=== PATIENT | male | born 1950 | race Caucasian/White ===

== ENCOUNTER → 2016-11-17 | Outpatient (CLI) | payer MEDICARE, OTHER ==
[2016-11-17 12:42] LABS: CHLORIDE,CL 99 mmol/L (98-110); SODIUM,NA 131 mmol/L (136-146)
== END ==
LOC: MW.CHIM 11:36
PROVIDERS: ATTEND Internal Medicine
DX: I10 Essential (primary) hypertension (principal); E87.1 Hypo-osmolality and hyponatremia
CPT/HCPCS: 36415; 80053

== ENCOUNTER 2016-11-25 12:35 | Emergency (ER) | payer MEDICARE, OTHER ==
[2016-11-25 12:54] VITALS: BP 148/80
--- NOTE | 2016-11-25 12:58 | EDM.PDOC ---
ED HPI GENERAL MEDICAL PROBLEM - General Chief Complaint: Lower Extremity Injury/Pain Stated Complaint: RIGHT KNEE Time Seen by Provider: 11/25/16 12:56 Source of Information: Reports: Patient History Limitations: Reports: No Limitations - History of Present Illness INITIAL COMMENTS - FREE TEXT/NARRATIVE: History of present illness: [66-year-old male comes in complaining of right-sided knee pain. Patient indicates that he was removing things from a closet over his head when a BB gun fell landing and striking him on the right knee. Patient indicates that it feels painful and swollen. Patient is able to perform passive range of motion but indicates that it is very uncomfortable.] Review of systems: As per history of present illness and below otherwise all systems reviewed and negative. Past medical history: As per history of present illness and as reviewed below otherwise noncontributory. Surgical history: As per history of present illness and as reviewed below otherwise noncontributory. Social history: No reported history of drug or alcohol abuse. Family history: As per history of present illness and as reviewed below otherwise noncontributory. Physical exam: HEENT: Atraumatic, normocephalic, pupils reactive, negative for conjunctival pallor or scleral icterus, mucous membranes moist, throat clear, neck supple, nontender, trachea midline. Lungs: Clear to auscultation, breath sounds equal bilaterally, chest nontender. Heart: S1S2, regular, negative for clicks, rubs, or JVD. Abdomen: Soft, nondistended, nontender. Negative for masses or hepatosplenomegaly. Negative for costovertebral tenderness. Pelvis: Stable nontender. Genitourinary: Deferred. Rectal: Deferred. Extremities: Right knee noted to have mild amount of swelling on the anterior aspect of the patella but no ecchymosis or significant amount of edema at this time, negative for cords or calf pain. Neurovascular unremarkable. Neuro: Awake, alert, oriented. Cranial nerves II through XII unremarkable. Cerebellum unremarkable. Motor and sensory unremarkable throughout. Exam nonfocal. Diagnostics: [Knee x-ray] Therapeutics: [] Impression: [] Plan: [] Definitive disposition and diagnosis as appropriate pending reevaluation and review of above. Right Knee Pain Score (Numeric/FACES): 6 - Related Data Allergies Allergy/AdvReac Type Severity Reaction Status Date / Time No Known Allergies Allergy Verified 09/14/14 12:30 Home Meds: Home Meds Lisinopril [Lisinopril] 1 tab PO DAILY 11/25/16 [History] Sodium Chloride [Sodium Chloride] 1 tab PO DAILY 11/25/16 [History] Umeclidinium Brm/Vilanterol Tr [Anoro Ellipta 62.5-25 Mcg INH] 1 puff PO DAILY 11/25/16 [History] Past Medical History - Past Health History Medical/Surgical History: Denies Medical/Surgical History Social & Family History - Tobacco Use Smoking Status *Q: Current Every Day Smoker Years of Tobacco use: 20 Packs/Tins Daily: 1 Second Hand Smoke Exposure: Yes - Alcohol Use Days Per Week of Alcohol Use: 1 Number of Drinks Per Day: 6 Total Drinks Per Week: 6 - Recreational Drug Use Recreational Drug Use: No Review of Systems - Review of Systems Review Of Systems: See Below (See history of present illness`) Trauma Exam - Physical Exam Exam: See Below (See history of present illness) Course - Vital Signs Last Recorded V/S: Last Vital Signs Temp 36.3 C 11/25/16 12:44 Pulse 78 11/25/16 12:44 Resp 18 11/25/16 12:44 BP 148/80 H 11/25/16 12:44 Pulse Ox 94 L 11/25/16 12:44 Departure - Departure Time of Disposition: 14:04 Disposition: Home, Self-Care 01 Condition: good Clinical Impression: Knee contusion - Discharge Information Forms: ED Department Discharge Additional Instructions: The following information is given to patients seen in the emergency department who are being discharged to home. This information is to outline your options for follow-up care. We provide all patients seen in our emergency department with a follow-up referral. The need for follow-up, as well as the timing and circumstances, are variable depending upon the specifics of your emergency department visit. If you don't have a primary care physician on staff, we will provide you with a referral. We always advise you to contact your personal physician following an emergency department visit to inform them of the circumstance of the visit and for follow-up with them and/or the need for any referrals to a consulting specialist. The emergency department will also refer you to a specialist when appropriate. This referral assures that you have the opportunity for follow-up care with a specialist. All of these measure are taken in an effort to provide you with optimal care, which includes your follow-up. Under all circumstances we always encourage you to contact your private physician who remains a resource for coordinating your care. When calling for follow-up care, please make the office aware that this follow-up is from your recent emergency room visit. If for any reason you are refused follow-up, please contact the [facility] Emergency Department at and asked to speak to the emergency department charge nurse. There was no obvious signs of fracture on your x-ray which is consistent with a contusion or blow to the knee it is important that you followup as discussed You may alternate ice and heat for comfort Take tihs-glk-eviywhi pain medications such as ibuprofen 800 mg every 8 hours Followup with primary care provider in one to 2 days as discussed Turned ED as needed as discussed
--- NOTE | 2016-11-25 13:49 | CR ---
EXAMINATION: Right knee HISTORY: Pain COMPARISON: None TECHNIQUE: 3 views FINDINGS: There is no acute osseous abnormality, dislocation, or fracture identified. Bone mineraliz ation appears normal. There is a small suprapatellar joint effusion. IMPRESSION: Small joint effusion without an acute osseous abnormality identified.
== END 2016-11-25 14:23 | disposition home or self-care (01) ==
LOC: MW.ED 12:35
DX: S80.01XA Contusion of right knee, initial encounter (principal); F17.210 Nicotine dependence, cigarettes, uncomplicated; Z79.899 Other long term (current) drug therapy; W20.8XXA Other cause of strike by thrown, projected or falling object, initial encounter
CPT/HCPCS: 73562-26-RT; 73562-RT; 99282; 99283

== ENCOUNTER 2016-12-30 21:34 | Observation (INO) | payer MEDICARE, OTHER ==
--- NOTE | 2016-12-30 21:40 | EDM.PDOC ---
ED HPI GENERAL MEDICAL PROBLEM - General Stated Complaint: HEAT EXHAUSTION Time Seen by Provider: 12/30/16 21:37 - History of Present Illness INITIAL COMMENTS - FREE TEXT/NARRATIVE: HISTORY AND PHYSICAL: History of present illness: Patient is 66-year-old male presents via paramedics after having an episode when she was semi-responsive this occurred when he is at home with his family sitting outside doing nothing this lasted an unknown amount of time but estimated B summer 2009-15 minutes there was no seizure activity no associated chest pain shortness of breath nausea vomiting fever chills or other concern he denies recent trauma had a blood sugar that was greater than 100 prior to arrival he also had complete resolution of his symptoms when paramedics intercepted for transport here he remains asymptomatic at this time Review of systems: As per history of present illness and below otherwise all systems reviewed and negative. Past medical history: As per history of present illness and as reviewed below otherwise noncontributory. Surgical history: As per history of present illness and as reviewed below otherwise noncontributory. Social history: No reported history of drug or alcohol abuse. Family history: As per history of present illness and as reviewed below otherwise noncontributory. Physical exam: HEENT: Atraumatic, normocephalic, pupils reactive, negative for conjunctival pallor or scleral icterus, mucous membranes moist, throat clear, neck supple, nontender, trachea midline. Lungs: Clear to auscultation, breath sounds equal bilaterally, chest nontender. Heart: S1S2, regular, negative for clicks, rubs, or JVD. Abdomen: Soft, nondistended, nontender. Negative for masses or hepatosplenomegaly. Negative for costovertebral tenderness. Pelvis: Stable nontender. Genitourinary: Deferred. Rectal: Deferred. Extremities: Atraumatic, negative for cords or calf pain. Neurovascular unremarkable. Neuro: Awake, alert, oriented. Cranial nerves II through XII unremarkable. Cerebellum unremarkable. Motor and sensory unremarkable throughout. Exam nonfocal. Diagnostics: CBC CMP PT/INR troponin chest x-ray EKG CT brain Therapeutics: IV O2 monitor Impression: #1 altered mental status resolved rule out TIA Definitive disposition and diagnosis as appropriate pending reevaluation and review of above. - Related Data Allergies Allergy/AdvReac Type Severity Reaction Status Date / Time No Known Allergies Allergy Verified 12/30/16 21:39 Home Meds: Home Meds Lisinopril [Lisinopril] 1 tab PO DAILY 11/25/16 [History] Meloxicam 7.5 mg PO BID #30 tablet 11/25/16 [Rx] Sodium Chloride [Sodium Chloride] 1 tab PO DAILY 11/25/16 [History] Umeclidinium Brm/Vilanterol Tr [Anoro Ellipta 62.5-25 Mcg INH] 1 puff PO DAILY 11/25/16 [History] Past Medical History - Past Health History Medical/Surgical History: Denies Medical/Surgical History Social & Family History - Tobacco Use Smoking Status *Q: Current Every Day Smoker Years of Tobacco use: 20 Packs/Tins Daily: 1 Second Hand Smoke Exposure: Yes - Alcohol Use Days Per Week of Alcohol Use: 1 Number of Drinks Per Day: 6 Total Drinks Per Week: 6 - Recreational Drug Use Recreational Drug Use: No ED ROS GENERAL - Review of Systems Review Of Systems: ROS reveals no pertinent complaints other than HPI. ED EXAM, GENERAL - Physical Exam Exam: See Below (See dictation) Course - Vital Signs Last Recorded V/S: Last Vital Signs Temp 36.2 C 12/30/16 21:48 Pulse 70 12/30/16 21:48 Resp 14 12/30/16 21:48 BP 137/74 12/30/16 21:48 Pulse Ox 97 12/30/16 21:48 - Orders/Labs/Meds Orders: Active Orders 24 hr Category Date Time Status EKG Documentation Completion [RC] STAT Care 12/30/16 21:37 Active Chest 1V Frontal [CR] Stat Exams 12/30/16 21:37 Taken Head wo Cont [CT] Stat Exams 12/30/16 21:37 Taken Sodium Chloride 0.9% [Normal Saline] 1,000 ml Med 12/30/16 21:46 Active IV .Bolus Medication Orders Sodium Chloride (Normal Saline) 1,000 mls @ 999 mls/hr IV .Bolus ONE Stop: 12/30/16 22:46 Last Admin: 12/30/16 21:56 Dose: 999 mls/hr Labs: Laboratory Tests 12/30/16 12/30/16 12/30/16 Range/Units 21:54 21:54 21:54 WBC 11.24 H (4.0-11.0) K/uL RBC 4.54 (4.50-5.90) M/uL Hgb 14.5 (13.0-17.0) g/dL Hct 40.7 (38.0-50.0) % MCV 89.6 (80.0-98.0) fL MCH 31.9 (27.0-32.0) pg MCHC 35.6 (31.0-37.0) g/dL RDW Std Deviation 46.7 (28.0-62.0) fl RDW Coeff of Pamela 14 (11.0-15.0) % Plt Count 239 (150-400) K/uL MPV 9.70 (7.40-12.00) fL Neut % (Auto) 73.7 (48.0-80.0) % Lymph % (Auto) 13.5 L (16.0-40.0) % [place] % (Auto) 12.0 (0.0-15.0) % Eos % (Auto) 0.4 (0.0-7.0) % Baso % (Auto) 0.4 (0.0-1.5) % Neut # (Auto) 8.3 H (1.4-5.7) K/uL Lymph # (Auto) 1.5 (0.6-2.4) K/uL [place] # (Auto) 1.4 H (0.0-0.8) K/uL Eos # (Auto) 0.1 (0.0-0.7) K/uL Baso # (Auto) 0.1 (0.0-0.1) K/uL Nucleated RBC % 0.0 /100WBC Nucleated RBCs # 0 K/uL INR 0.98 (0.86-1.11) Sodium 130 L (136-146) mmol/L Potassium 4.0 (3.5-5.1) mmol/L Chloride 98 (98-110) mmol/L Carbon Dioxide 20 L (21-31) mmol/L BUN 13 (6.0-23.0) mg/dL Creatinine 1.1 (0.6-1.5) mg/dL Est Cr Clr Drug Dosing 63.57 mL/min Estimated GFR (MDRD) > 60.0 ml/min Glucose 96 (60-110) mg/dL Calcium 9.7 (8.8-10.8) mg/dL Total Bilirubin 0.6 (0.1-1.5) mg/dL AST 20 (5-40) IU/L ALT 9 (8-54) IU/L Alkaline Phosphatase 58 (40-150) CK-MB (CK-2) 1.0 (0-6.6) ng/ml Troponin I (0.0-0.29) NG/ML Total Protein 7.4 (6.0-8.0) g/dL Albumin 4.2 (3.4-4.8) g/dL Globulin 3.2 (2.0-3.5) g/dL Albumin/Globulin Ratio 1.3 (1.3-2.8) 12/30/16 Range/Units 21:54 WBC (4.0-11.0) K/uL RBC (4.50-5.90) M/uL Hgb (13.0-17.0) g/dL Hct (38.0-50.0) % MCV (80.0-98.0) fL MCH (27.0-32.0) pg MCHC (31.0-37.0) g/dL RDW Std Deviation (28.0-62.0) fl RDW Coeff of Pamela (11.0-15.0) % Plt Count (150-400) K/uL MPV (7.40-12.00) fL Neut % (Auto) (48.0-80.0) % Lymph % (Auto) (16.0-40.0) % [place] % (Auto) (0.0-15.0) % Eos % (Auto) (0.0-7.0) % Baso % (Auto) (0.0-1.5) % Neut # (Auto) (1.4-5.7) K/uL Lymph # (Auto) (0.6-2.4) K/uL [place] # (Auto) (0.0-0.8) K/uL Eos # (Auto) (0.0-0.7) K/uL Baso # (Auto) (0.0-0.1) K/uL Nucleated RBC % /100WBC Nucleated RBCs # K/uL INR (0.86-1.11) Sodium (136-146) mmol/L Potassium (3.5-5.1) mmol/L Chloride (98-110) mmol/L Carbon Dioxide (21-31) mmol/L BUN (6.0-23.0) mg/dL Creatinine (0.6-1.5) mg/dL Est Cr Clr Drug Dosing mL/min Estimated GFR (MDRD) ml/min Glucose (60-110) mg/dL Calcium (8.8-10.8) mg/dL Total Bilirubin (0.1-1.5) mg/dL AST (5-40) IU/L ALT (8-54) IU/L Alkaline Phosphatase (40-150) CK-MB (CK-2) (0-6.6) ng/ml Troponin I < 0.10 (0.0-0.29) NG/ML Total Protein (6.0-8.0) g/dL Albumin (3.4-4.8) g/dL Globulin (2.0-3.5) g/dL Albumin/Globulin Ratio (1.3-2.8) Meds: Medications Generic Name Dose Route Start Last Admin Trade Name Freq PRN Reason Stop Dose Admin Sodium Chloride 1,000 mls @ 999 mls/hr 12/30/16 21:46 12/30/16 21:56 Normal Saline IV 12/30/16 22:46 999 mls/hr .Bolus ONE Administration Departure - Departure Time of Disposition: 22:43 Disposition: Refer to Observation Condition: Good Clinical Impression: Altered mental status - Discharge Information - My Orders Last 24 Hours: My Active Orders 12/30/16 21:37 EKG Documentation Completion [RC] STAT Chest 1V Frontal [CR] Stat Head wo Cont [CT] Stat 12/30/16 21:46 Sodium Chloride 0.9% [Normal Saline] 1,000 ml IV .Bolus - Assessment/Plan Last 24 Hours: My Active Orders 12/30/16 21:37 EKG Documentation Completion [RC] STAT Chest 1V Frontal [CR] Stat Head wo Cont [CT] Stat 12/30/16 21:46 Sodium Chloride 0.9% [Normal Saline] 1,000 ml IV .Bolus
[2016-12-30] MEDS ORDERED: Sodium Chloride 0.9% 1,000 ML IV ONE (21:46)
[2016-12-30 22:31] LABS: CHLORIDE,CL 98 mmol/L (98-110); SODIUM,NA 130 mmol/L (136-146)
[2016-12-31] MEDS ORDERED: Sodium Chloride 0.9% 2.5 ML Syringe FLUSH PRN (00:29)
[2016-12-31] MEDS ORDERED: Sodium Chloride 0.9% 10 ML Syringe FLUSH PRN (00:29)
[2016-12-31 08:10] VITALS: BP 120/57
[2016-12-31 08:37] LABS: CHLORIDE,CL 103 mmol/L (98-110); SODIUM,NA 131 mmol/L (136-146)
--- NOTE | 2016-12-31 09:34 | PCM.HP ---
H&P History of Present Illness - General Date of Service: 12/31/16 Admit Problem/Dx: Admission Diagnosis/Problem Admission Diagnosis/Problem Altered mental status Source of Information: Patient History Limitations: Reports: No Limitations - History of Present Illness Initial Comments - Free Text/Narative: This 66 year old male with pmh hyponatremia and HTN presented to the ED last evening with complaints of disorientation. He reports having a normal morning at home and then went to his daughters place for the afternoon. He was outside for most of this time and not drinking any fluids. He had 1/4 of a beer maybe. He reports remembering everything from starting to not feel well, the drive to the hospital. He initially felt like he didn't know where he was and was asking to go home. His daughters noticed the disorientation and had EMS come to have him evaluated in the ED. He reports feeling flushed, very hot and sweating alot. He denies headache, fevers, or chest pain. No SOB or N/V. By the time he arrived to the ED he was feeling better. He was given 1 L bolus NS in the ED. In the ED VS stable. labwork WNL, Na 130, does have hx hyponatremia (near baseline). CXR negative. Head CT completed which revealed no evidence of acute infarction, hemorrhage or mass effect, it did show an area of small focus of encephalomalacia present in the right frontal lobe, mild diffuse cortical atrophy and diffuse confluent low attenuation white matter changes likely due to chronic microvascular disease. ED physician recommended admission for AMS. PCP, Dr. Do - Related Data Allergies/Adverse Reactions: Allergies Allergy/AdvReac Type Severity Reaction Status Date / Time No Known Allergies Allergy Verified 12/30/16 21:39 Home Medications: Home Meds Lisinopril 1 tab PO BID 11/25/16 [History] Meloxicam 7.5 mg PO BID #30 tablet 11/25/16 [Rx] Sodium Chloride 2 tab PO BID 11/25/16 [History] Umeclidinium Brm/Vilanterol Tr [Anoro Ellipta 62.5-25 Mcg INH] 1 puff PO DAILY 11/25/16 [History] amLODIPine [Norvasc] 2.5 mg PO DAILY 12/31/16 [History] Past Medical History - Past Health History Medical/Surgical History: Denies Medical/Surgical History Cardiovascular History: Reports: High Cholesterol, Hypertension. Denies: Heart Failure, ID Respiratory History: Reports: COPD Gastrointestinal History: Reports: Other (See Below) Other Gastrointestinal History: abdominal surgery on ulcer per pt Genitourinary History: Reports: None. Denies: Chronic Renal Insuffiency Musculoskeletal History: Reports: None Neurological History: Reports: None. Denies: CVA, TIA Psychiatric History: Reports: None Endocrine/Metabolic History: Reports: None. Denies: Diabetes, Type II Hematologic History: Reports: Other (See Below) Other Hematologic History: hyponatremia Immunologic History: Reports: None Oncologic (Cancer) History: Reports: None - Infectious Disease History Infectious Disease History: Reports: Chicken Pox, Measles, Mumps Social & Family History - Family History Family Medical History: Noncontributory HEENT: Reports: None Cardiac: Reports: Bypass, Hypertension, ID OBGYN: Reports: Oncologic: Reports: Pancreatic - Tobacco Use Smoking Status *Q: Current Every Day Smoker Years of Tobacco use: 40 Packs/Tins Daily: 0.5 Second Hand Smoke Exposure: No - Caffeine Use Caffeine Use: Reports: Coffee, Soda, Tea - Alcohol Use Days Per Week of Alcohol Use: 1 Number of Drinks Per Day: 6 Total Drinks Per Week: 6 Date of Last Drink: 12/30/16 Time of Last Drink: 19:00 - Recreational Drug Use Recreational Drug Use: No H&P Review of Systems - Review of Systems: Review Of Systems: See Below General: Reports: No Symptoms. Denies: Fever, Chills, Weakness, Fatigue HEENT: Reports: No Symptoms. Denies: Ear Pain, Headaches, Sinus Congestion, Visual Changes Pulmonary: Reports: No Symptoms. Denies: Shortness of Breath, Cough, Sputum Cardiovascular: Reports: No Symptoms. Denies: Chest Pain, Dyspnea on Exertion, Lightheadedness, Syncope Gastrointestinal: Reports: No Symptoms. Denies: Abdominal Pain, Black Stool, Bloody Stool, Nausea, Vomiting Genitourinary: Reports: No Symptoms. Denies: Dysuria, Frequency, Burning Musculoskeletal: Reports: No Symptoms, Back Pain. Denies: Neck Pain Skin: Reports: No Symptoms Neurological: Reports: Confusion (disorientation last evening, has since been gone upon arrival to ED). Denies: Numbness, Paresthesia, Seizure, Syncope, Trouble Speaking Hematologic/Lymphatic: Reports: No Symptoms Immunologic: Reports: No Symptoms Exam - Exam Exam: See Below - Vital Signs Vital Signs: Last Vital Signs Temp 97.3 F 12/31/16 08:00 Pulse 62 12/31/16 08:00 Resp 20 12/31/16 08:00 BP 120/57 L 12/31/16 08:00 Pulse Ox 97 12/31/16 08:00 Weight: 61.734 kg - Exam General: Alert, Oriented, Cooperative HEENT: Conjunctiva Clear, Hearing Intact, Mucosa Moist & [place], Pupils Equal Neck: Supple, Trachea Midline, 2 Lungs: Clear to Auscultation, Normal Respiratory Effort Cardiovascular: Regular Rate, Regular Rhythm, Normal S1, Normal S2. No: Bradycardia, Systolic Murmur Abdomen: Normal Bowel Sounds, Soft. No: Distention, Tenderness Extremities: Normal Inspection, Normal Pulses. No: Calf Tenderness, Edema Neuro Extensive - Mental Status: Alert, Oriented x3, Normal Mood/Affect, Normal Cognition Neuro Extensive - Motor, Sensory, Reflexes: CN II-XII Intact Psychiatric: Alert, Normal Affect, Normal Mood - Patient Data Lab Results Last 24 hrs: Laboratory Results - last 24 hr 12/31/16 12/31/16 Range/Units 08:10 08:10 WBC 6.30 (4.0-11.0) K/uL RBC 3.81 L (4.50-5.90) M/uL Hgb 11.9 L (13.0-17.0) g/dL Hct 33.9 L (38.0-50.0) % MCV 89.0 (80.0-98.0) fL MCH 31.2 (27.0-32.0) pg MCHC 35.1 (31.0-37.0) g/dL RDW Std Deviation 46.5 (28.0-62.0) fl RDW Coeff of Pamela 14 (11.0-15.0) % Plt Count 224 (150-400) K/uL MPV 9.30 (7.40-12.00) fL Neut % (Auto) 50.8 (48.0-80.0) % Lymph % (Auto) 33.3 (16.0-40.0) % [place] % (Auto) 13.5 (0.0-15.0) % Eos % (Auto) 1.1 (0.0-7.0) % Baso % (Auto) 1.3 (0.0-1.5) % Neut # (Auto) 3.2 (1.4-5.7) K/uL Lymph # (Auto) 2.1 (0.6-2.4) K/uL [place] # (Auto) 0.9 H (0.0-0.8) K/uL Eos # (Auto) 0.1 (0.0-0.7) K/uL Baso # (Auto) 0.1 (0.0-0.1) K/uL Nucleated RBC % 0.0 /100WBC Nucleated RBCs # 0 K/uL Sodium 131 L (136-146) mmol/L Potassium 3.9 (3.5-5.1) mmol/L Chloride 103 (98-110) mmol/L Carbon Dioxide 21 (21-31) mmol/L BUN 12 (6.0-23.0) mg/dL Creatinine 0.7 (0.6-1.5) mg/dL Est Cr Clr Drug Dosing 90.64 mL/min Estimated GFR (MDRD) > 60.0 ml/min Glucose 91 (60-110) mg/dL Calcium 8.2 L (8.8-10.8) mg/dL Result Diagrams: 12/31/16 08:10 12/31/16 08:10 EKG INTERPRETATION EKG Date: 01/01/17 Rhythm: NSR Rate (Beats/Min): 75 P-Wave: Present QRS: Normal ST-T: Normal QT: Normal *Q Meaningful Use (ADM) - VTE *Q VTE Criteria *Q: - Stroke *Q Stroke Criteria *Q: - AMI *Q AMI Criteria *Q: - Problem List (1) Dehydration SNOMED Code(s): 06345940 ICD Code: E86.0 - DEHYDRATION Status: Acute Current Visit: Yes (2) Altered mental status SNOMED Code(s): 874421991 ICD Code: R41.82 - ALTERED MENTAL STATUS, UNSPECIFIED Status: Resolved Current Visit: Yes Qualifiers: Altered mental status type: disorientation Qualified Code(s): R41.0 - Disorientation, unspecified Problem List Initiated/Reviewed/Updated: Yes Orders Last 24hrs: Active Orders 24 hr Category Date Time Status Ready for Discharge [RC] PER UNIT ROUTINE Care 12/31/16 09:33 Ordered Telemetry Monitoring [Cardiac Monitoring] [RC] Q8H Care 12/31/16 00:28 Active Regular Diet [DIET] Diet 12/31/16 Breakfast Active Sodium Chloride 0.9% [Saline Flush] Med 12/31/16 00:29 Active 10 ml FLUSH ASDIRECTED PRN Sodium Chloride 0.9% [Saline Flush] Med 12/31/16 00:29 Active 2.5 ml FLUSH ASDIRECTED PRN Convert IV to Saline Lock [OM.PC] Routine Oth 12/31/16 00:29 Ordered Medication Orders Sodium Chloride (Saline Flush) 10 ml FLUSH ASDIRECTED PRN PRN Reason: Keep Vein Open Sodium Chloride (Saline Flush) 2.5 ml FLUSH ASDIRECTED PRN PRN Reason: Keep Vein Open Assessment/Plan Comment:: This 66 year old male was admitted for disoriented and slight dehydration due to heat He was monitored overnight with no recurrent episodes of disorientation. He was given 1 L bolus IV fluids in ED. Today he is feeling much better and requesting discharge home. He was encouraged to stay hydrated with fluids during excessive heat. He verbalizes understanding. He was made aware of tiny area of encephalomalacia, denies history of stroke or TIA. To follow with PCP, Dr. Do. He is to return to ED or clinic if concerns should arise.
--- NOTE | 2016-12-31 17:08 | CR ---
EXAM DATE: 12/30/16 PATIENT'S AGE: 66 Patient: KEITH GILBERT Facility: [place], [place] Site . Site : 1950 Study: XRay Chest [id number] 10:09:59 PM Ordering Physician: Doctor Newberry Final Report: INDICATION: altered loc, possible tia TECHNIQUE: Chest radiograph 1 view COMPARISON: 01/15/16 FINDINGS: Cardiovascular and mediastinum: The cardiac silhouette is normal in appearance and size. Mediastinum is within normal limits. Lungs and pleural space: Both lungs are unremarkable in appearance. No sign of pleural effusion. No pneumothorax is seen. Bones and soft tissues: No significant findings. IMPRESSION: 1. No acute cardiopulmonary disease seen. Dictated by: Palomo Romeo MD @ 12/30/2016 22:30:18 (Electronic Signature) Report Signed by Proxy. TERESITA
--- NOTE | 2016-12-31 17:10 | CT ---
EXAM DATE: 12/30/16 PATIENT'S AGE: 66 Patient: KEITH GILBERT Facility: [place], [place] Site . Site : 1950 Study: CT Head wo cont [id number]/4/[id number] 10:11:06 PM Ordering Physician: Adeel Pena Final Report: INDICATION: Transient alteration of awareness TECHNIQUE: CT Head without i.v. contrast. COMPARISON: None FINDINGS: CSF spaces: Within normal limits for age. Brain parenchyma: Small focus of encephalomalacia present in the right frontal lobe. Mild diffuse cortical atrophy is noted. There are diffuse-confluent, low attenuation white matter changes, likely due to chronic microvascular disease. The brain parenchyma is normal in appearance with preservation of the meneses- white matter junction. No sign of mass, hemorrhage, or midline shift seen. Skull base and calvarium: The visualized paranasal sinuses are well aerated. The mastoid air cells are clear. The visualized orbits are grossly unremarkable. No skull fractures are seen. IMPRESSION: 1. No evidence of acute infarction, intracranial hemorrhage, or mass effect seen. Dictated by Palomo Romeo MD @ 12/30/2016 10:32:07 PM Dictated by: Palomo Romeo MD @ 12/30/2016 22:32:17 (Electronic Signature) Report Signed by Proxy. TERESITA
== END 2016-12-31 13:50 | disposition home or self-care (01) ==
LOC: MW.ED 21:34 → MW.MS 22:44
PROVIDERS: ADMIT Internal Medicine; ATTEND Internal Medicine
DX: E86.0 Dehydration (principal); R41.82 Altered mental status, unspecified; R41.0 Disorientation, unspecified; E78.00 Pure hypercholesterolemia, unspecified; J44.9 Chronic obstructive pulmonary disease, unspecified; I12.9 Hypertensive chronic kidney disease with stage 1 through stage 4 chronic kidney disease, or unspecified chronic kidney disease; N18.9 Chronic kidney disease, unspecified; F17.210 Nicotine dependence, cigarettes, uncomplicated; Z79.899 Other long term (current) drug therapy
CPT/HCPCS: 36415; 70450; 71010; 80048; 80053; 82553; 84484; 85025; 85610; 93005; 96360; 99285; G0378; J7040; 99283

== ENCOUNTER 2018-11-27 21:41 | Observation (INO) | payer MEDICARE, OTHER ==
[2018-11-27] MEDS ORDERED: Sodium Chloride 0.9% 1,000 ML IV SCH (22:00)
--- NOTE | 2018-11-27 22:00 | EDM.PDOC ---
ED HPI GENERAL MEDICAL PROBLEM - General Chief Complaint: General Stated Complaint: PT SPOKE TO NURSE Time Seen by Provider: 11/27/18 21:59 Source of Information: Reports: Patient - History of Present Illness INITIAL COMMENTS - FREE TEXT/NARRATIVE: HISTORY AND PHYSICAL: History of present illness: [Patient with history of hyponatremia presents with confusion and weakness appears dehydrated No fever nausea vomiting chills sweats ] Review of systems: As per history of present illness and below otherwise all systems reviewed and negative. Past medical history: As per history of present illness and as reviewed below otherwise noncontributory. Surgical history: As per history of present illness and as reviewed below otherwise noncontributory. Social history: No reported history of drug or alcohol abuse. Family history: As per history of present illness and as reviewed below otherwise noncontributory. Physical exam: HEENT: Atraumatic, normocephalic, pupils reactive, negative for conjunctival pallor or scleral icterus, mucous membranes moist, throat clear, neck supple, nontender, trachea midline. Lungs: Clear to auscultation, breath sounds equal bilaterally, chest nontender. Heart: S1S2, regular, negative for clicks, rubs, or JVD. Abdomen: Soft, nondistended, nontender. Negative for masses or hepatosplenomegaly. Negative for costovertebral tenderness. Pelvis: Stable nontender. Genitourinary: Deferred. Rectal: Deferred. Extremities: Atraumatic, negative for cords or calf pain. Neurovascular unremarkable. Neuro: Awake, alert, oriented. Cranial nerves II through XII unremarkable. Cerebellum unremarkable. Motor and sensory unremarkable throughout. Exam nonfocal. Skin tenting noted Diagnostics: [CBC CMP UA troponin EKG Chest 1 view ] Therapeutics: [ normal saline ] Impression: Dehydration Hyponatremia Confusion [ history of hyponatremia Chronic history of baseline ] Definitive disposition and diagnosis as appropriate pending reevaluation and review of above. - Related Data Allergies Allergy/AdvReac Type Severity Reaction Status Date / Time No Known Allergies Allergy Verified 11/27/18 21:55 Home Meds: Home Meds . [No Known Home Meds] 11/27/18 [History] Past Medical History - Past Health History Medical/Surgical History: Denies Medical/Surgical History Cardiovascular History: Reports: High Cholesterol, Hypertension Respiratory History: Reports: COPD Gastrointestinal History: Reports: Other (See Below) Other Gastrointestinal History: abdominal surgery on ulcer per pt Genitourinary History: Reports: None Musculoskeletal History: Reports: None Neurological History: Reports: None Psychiatric History: Reports: None Endocrine/Metabolic History: Reports: None Hematologic History: Reports: Other (See Below) Other Hematologic History: hyponatremia Immunologic History: Reports: None Oncologic (Cancer) History: Reports: None Dermatologic History: Reports: None - Infectious Disease History Infectious Disease History: Reports: Chicken Pox, Measles, Mumps Social & Family History - Family History Family Medical History: Noncontributory HEENT: Reports: None Cardiac: Reports: Bypass, Hypertension, [place] OBGYN: Reports: Oncologic: Reports: Pancreatic - Caffeine Use Caffeine Use: Reports: Coffee, Soda, Tea ED ROS GENERAL - Review of Systems Review Of Systems: See Below ED EXAM, GENERAL - Physical Exam Exam: See Below Course - Vital Signs Last Recorded V/S: Last Vital Signs Temp 98.7 F 11/27/18 21:50 Pulse 63 11/27/18 21:50 Resp BP 137/81 11/27/18 21:50 Pulse Ox 100 11/27/18 21:50 - Orders/Labs/Meds Orders: Active Orders 24 hr Category Date Time Status EKG Documentation Completion [RC] STAT Care 11/27/18 21:58 Active UA RFX MIGNON AND CULT IF INDIC [URIN] Stat Lab 11/27/18 21:58 Ordered Sodium Chloride 0.9% [Normal Saline] 1,000 ml Med 11/27/18 22:00 Active IV STAT Medication Orders Sodium Chloride (Normal Saline) 1,000 mls @ 125 mls/hr IV STAT MANJEET Last Admin: 11/27/18 22:21 Dose: 125 mls/hr Labs: Laboratory Tests 11/27/18 11/27/18 Range/Units 22:10 22:10 WBC 6.60 (4.0-11.0) K/uL RBC 4.29 L (4.50-5.90) M/uL Hgb 13.8 (13.0-17.0) g/dL Hct 38.9 (38.0-50.0) % MCV 90.7 (80.0-98.0) fL MCH 32.2 H (27.0-32.0) pg MCHC 35.5 (31.0-37.0) g/dL RDW Std Deviation 44.0 (28.0-62.0) fl RDW Coeff of Pamela 14 (11.0-15.0) % Plt Count 227 (150-400) K/uL MPV 9.40 (7.40-12.00) fL Neut % (Auto) 47.6 L (48.0-80.0) % Lymph % (Auto) 39.5 (16.0-40.0) % [place] % (Auto) 10.6 (0.0-15.0) % Eos % (Auto) 1.2 (0.0-7.0) % Baso % (Auto) 1.1 (0.0-1.5) % Neut # (Auto) 3.1 (1.4-5.7) K/uL Lymph # (Auto) 2.6 H (0.6-2.4) K/uL [place] # (Auto) 0.7 (0.0-0.8) K/uL Eos # (Auto) 0.1 (0.0-0.7) K/uL Baso # (Auto) 0.1 (0.0-0.1) K/uL Nucleated RBC % 0.0 /100WBC Nucleated RBCs # 0 K/uL Sodium 129 L (136-148) mmol/L Potassium 3.9 (3.5-5.1) mmol/L Chloride 95 L (98-107) mmol/L Carbon Dioxide 25.2 (21.0-32.0) mmol/L BUN 9 (7.0-18.0) mg/dL Creatinine 0.8 (0.8-1.3) mg/dL Est Cr Clr Drug Dosing TNP Estimated GFR (MDRD) > 60.0 ml/min Glucose 74 (74-106) mg/dL Calcium 8.8 (8.5-10.1) mg/dL Total Bilirubin 0.3 (0.2-1.0) mg/dL AST 14 L (15-37) IU/L ALT 10 L (14-63) IU/L Alkaline Phosphatase 56 (46-116) U/L Troponin I < 0.050 (0.000-0.056) ng/mL Total Protein 6.8 (6.4-8.2) g/dL Albumin 3.8 (3.4-5.0) g/dL Globulin 3.0 (2.6-4.0) g/dL Albumin/Globulin Ratio 1.3 (0.9-1.6) Meds: Medications Generic Name Dose Route Start Last Admin Trade Name Sarah PRN Reason Stop Dose Admin Sodium Chloride 1,000 mls @ 125 mls/hr 11/27/18 22:00 11/27/18 22:21 Normal Saline IV 125 mls/hr STAT MANJEET Administration Departure - Departure Time of Disposition: 22:59 Disposition: Refer to Observation Condition: Poor Clinical Impression: Hyponatremia, Hyponatremia, Dehydration - Discharge Information Referrals: Niels Do MD [Primary Care Provider] - Forms: ED Department Discharge - My Orders Last 24 Hours: My Active Orders 11/27/18 21:58 EKG Documentation Completion [RC] STAT UA RFX MIGNON AND CULT IF INDIC [URIN] Stat 11/27/18 22:00 Sodium Chloride 0.9% [Normal Saline] 1,000 ml IV STAT - Assessment/Plan Last 24 Hours: My Active Orders 11/27/18 21:58 EKG Documentation Completion [RC] STAT UA RFX MIGNON AND CULT IF INDIC [URIN] Stat 11/27/18 22:00 Sodium Chloride 0.9% [Normal Saline] 1,000 ml IV STAT
[2018-11-27 22:41] LABS: CHLORIDE,CL 95 mmol/L (98-107); SODIUM,NA 129 mmol/L (136-148)
--- NOTE | 2018-11-27 22:41 | CR ---
Indication: Pain Technique: Chest 1 view Comparison: None Findings/Impression: Cardiovascular and mediastinum: Heart size and vasculature are normal in caliber and appearance. Mediastinum is within normal limits. Lungs and pleural space: Lungs are clear. No sign of infiltrate or mass. No sign of pleural effusion. No pneumothorax. Bones and soft tissues: No significant findings. Surgical clips noted in the epigastric region. Dictated by Jeannette Roy MD @ Nov 27 2018 10:39PM Signed by Dr. Jeannette Roy @ Nov 27 2018 10:39PM
--- NOTE | 2018-11-27 23:58 | CT ---
INDICATION: Altered mental status TECHNIQUE: CT Head without i.v. contrast. COMPARISON: 04/13/2018 FINDINGS: Mild degradation of image quality noted due to patient motion artifacts. CSF space: Unremarkable for age. Brain: No evidence of mass, acute infarction or hemorrhage is seen. No mass-effect or midline shift is seen. Mild diffuse cortical atrophy is noted. Severe patchy regions of low attenuation are present in the periventricular white matter, likely due to chronic microvascular ischemic changes. A small focus of encephalomalacia is present within the right frontal lobe without interval change. There is a calcified round pineal nodule present measuring 9 mm without change. Calvarium: The visualized paranasal sinuses are well aerated. The mastoid air cells are clear. The visualized orbits are grossly unremarkable. The calvarium is unremarkable in appearance with no fractures identified. IMPRESSION: 1. No evidence of acute infarction, intracranial hemorrhage, or mass-effect seen. Dictated by Palomo Romeo MD @ 11/27/2018 11:57:37 PM Please note that all CT scans at this facility use dose modulation, iterative reconstruction, and/or weight-based dosing when appropriate to reduce radiation dose to as low as reasonably achievable. Dictated by: Palomo Romeo MD @ 11/27/2018 23:57:51 (Electronically Signed)
[2018-11-28] MEDS: Sodium Chloride 0.9% 1,000 ML IV SCH ×3 (06:31→23:15)
[2018-11-28 07:20] LABS: CHLORIDE,CL 102 mmol/L (98-107); SODIUM,NA 135 mmol/L (136-148)
--- NOTE | 2018-11-28 09:00 | PCM.HP ---
H&P History of Present Illness - General Date of Service: 11/28/18 Admit Problem/Dx: Admission Diagnosis/Problem Admission Diagnosis/Problem Dehydration - History of Present Illness Initial Comments - Free Text/Narative: 68 yo male with pmh of hypertension who was brought to the ED due to concerns of confusion and weakness. Family reports patient is general not confused. Patient denies any problems. He denies any pain, weakness or shortness of breath. CT head showed no acute pathology and CXR, UA are clear. - Related Data Allergies/Adverse Reactions: Allergies Allergy/AdvReac Type Severity Reaction Status Date / Time No Known Allergies Allergy Verified 11/27/18 21:55 Home Medications: Home Meds . [No Known Home Meds] 11/27/18 [History] Past Medical History - Past Health History Medical/Surgical History: Denies Medical/Surgical History HEENT History: Reports: Glaucoma Cardiovascular History: Reports: High Cholesterol, Hypertension Respiratory History: Reports: COPD Gastrointestinal History: Reports: Other (See Below) Other Gastrointestinal History: abdominal surgery on ulcer per pt Genitourinary History: Reports: None Musculoskeletal History: Reports: None Neurological History: Reports: None Psychiatric History: Reports: None Endocrine/Metabolic History: Reports: None Hematologic History: Reports: Other (See Below) Other Hematologic History: hyponatremia Immunologic History: Reports: None Oncologic (Cancer) History: Reports: None Dermatologic History: Reports: None - Infectious Disease History Infectious Disease History: Reports: Chicken Pox, Measles, Mumps - Past Surgical History GI Surgical History: Reports: Appendectomy Social & Family History - Family History Family Medical History: Noncontributory HEENT: Reports: None Cardiac: Reports: Bypass, Hypertension, [place] OBGYN: Reports: Oncologic: Reports: Pancreatic - Tobacco Use Smoking Status *Q: Current Every Day Smoker Years of Tobacco use: 50 Packs/Tins Daily: 2 Used Tobacco, but Quit: No Second Hand Smoke Exposure: No - Caffeine Use Caffeine Use: Reports: Coffee - Recreational Drug Use Recreational Drug Use: No H&P Review of Systems - Review of Systems: Review Of Systems: ROS reveals no pertinent complaints other than HPI. Exam - Exam Exam: See Below - Vital Signs Vital Signs: Last Vital Signs Temp 36.8 C 11/28/18 08:02 Pulse 54 L 11/28/18 08:02 Resp 16 11/28/18 08:02 BP 137/68 11/28/18 08:02 Pulse Ox 96 11/28/18 08:02 Weight: 74.843 kg - Exam General: Alert, Cooperative HEENT: Mucosa Moist & [place] Neck: Supple Lungs: Clear to Auscultation, Normal Respiratory Effort Cardiovascular: Regular Rate, Regular Rhythm GI/Abdominal Exam: Normal Bowel Sounds, Soft, Non-Tender Extremities: No Pedal Edema Skin: Warm, Dry, Intact Neurological: Cranial Nerves Intact, Reflexes Equal Bilateral, Strength Equal Bilateral, Normal Gait, Normal Speech, Normal Tone, Sensation Intact, Other ( patient did have some unsteadiness when he stood up abruptly but when he takes his time he is balanced on his feet, he does have past pointing on finger to nose exam, He has spent most ot the day sleeping. He is easily arousable but once done talking goes to sleep immediatly.) - Patient Data Lab Results Last 24 hrs: Laboratory Results - last 24 hr 11/27/18 11/27/18 11/28/18 Range/Units 22:10 22:10 03:17 WBC 6.60 (4.0-11.0) K/uL RBC 4.29 L (4.50-5.90) M/uL Hgb 13.8 (13.0-17.0) g/dL Hct 38.9 (38.0-50.0) % MCV 90.7 (80.0-98.0) fL MCH 32.2 H (27.0-32.0) pg MCHC 35.5 (31.0-37.0) g/dL RDW Std Deviation 44.0 (28.0-62.0) fl RDW Coeff of Pamela 14 (11.0-15.0) % Plt Count 227 (150-400) K/uL MPV 9.40 (7.40-12.00) fL Neut % (Auto) 47.6 L (48.0-80.0) % Lymph % (Auto) 39.5 (16.0-40.0) % [place] % (Auto) 10.6 (0.0-15.0) % Eos % (Auto) 1.2 (0.0-7.0) % Baso % (Auto) 1.1 (0.0-1.5) % Neut # (Auto) 3.1 (1.4-5.7) K/uL Lymph # (Auto) 2.6 H (0.6-2.4) K/uL [place] # (Auto) 0.7 (0.0-0.8) K/uL Eos # (Auto) 0.1 (0.0-0.7) K/uL Baso # (Auto) 0.1 (0.0-0.1) K/uL Nucleated RBC % 0.0 /100WBC Nucleated RBCs # 0 K/uL Sodium 129 L (136-148) mmol/L Potassium 3.9 (3.5-5.1) mmol/L Chloride 95 L (98-107) mmol/L Carbon Dioxide 25.2 (21.0-32.0) mmol/L BUN 9 (7.0-18.0) mg/dL Creatinine 0.8 (0.8-1.3) mg/dL Est Cr Clr Drug Dosing TNP Estimated GFR (MDRD) > 60.0 ml/min Glucose 74 (74-106) mg/dL Calcium 8.8 (8.5-10.1) mg/dL Total Bilirubin 0.3 (0.2-1.0) mg/dL AST 14 L (15-37) IU/L ALT 10 L (14-63) IU/L Alkaline Phosphatase 56 (46-116) U/L Troponin I < 0.050 (0.000-0.056) ng/mL Total Protein 6.8 (6.4-8.2) g/dL Albumin 3.8 (3.4-5.0) g/dL Globulin 3.0 (2.6-4.0) g/dL Albumin/Globulin Ratio 1.3 (0.9-1.6) Urine Color YELLOW Urine Appearance CLEAR Urine pH 5.5 (5.0-8.0) Ur Specific [place] <= 1.005 (1.001-1.035) Urine Protein NEGATIVE (NEGATIVE) mg/dL Urine Glucose (UA) NEGATIVE (NEGATIVE) mg/dL Urine Ketones NEGATIVE (NEGATIVE) mg/dL Urine Occult Blood TRACE-INTACT H (NEGATIVE) Urine Nitrite NEGATIVE (NEGATIVE) Urine Bilirubin NEGATIVE (NEGATIVE) Urine Urobilinogen 0.2 (<2.0) EU/dL Ur Leukocyte Esterase NEGATIVE (NEGATIVE) Urine RBC NONE SEEN (0-2/HPF) Urine WBC 0-1 (0-5/HPF) Ur Epithelial Cells RARE (NONE-FEW) Urine Bacteria RARE (NEGATIVE) Urine Mucus LIGHT (NONE-MOD) 11/28/18 11/28/18 Range/Units 06:40 06:40 WBC 6.63 (4.0-11.0) K/uL RBC 4.29 L (4.50-5.90) M/uL Hgb 13.6 (13.0-17.0) g/dL Hct 38.5 (38.0-50.0) % MCV 89.7 (80.0-98.0) fL MCH 31.7 (27.0-32.0) pg MCHC 35.3 (31.0-37.0) g/dL RDW Std Deviation 43.0 (28.0-62.0) fl RDW Coeff of Pamela 13 (11.0-15.0) % Plt Count 233 (150-400) K/uL MPV 9.80 (7.40-12.00) fL Neut % (Auto) 58.3 (48.0-80.0) % Lymph % (Auto) 28.8 (16.0-40.0) % [place] % (Auto) 10.1 (0.0-15.0) % Eos % (Auto) 1.4 (0.0-7.0) % Baso % (Auto) 1.4 (0.0-1.5) % Neut # (Auto) 3.9 (1.4-5.7) K/uL Lymph # (Auto) 1.9 (0.6-2.4) K/uL [place] # (Auto) 0.7 (0.0-0.8) K/uL Eos # (Auto) 0.1 (0.0-0.7) K/uL Baso # (Auto) 0.1 (0.0-0.1) K/uL Nucleated RBC % 0.0 /100WBC Nucleated RBCs # 0 K/uL Sodium 135 L (136-148) mmol/L Potassium 3.8 (3.5-5.1) mmol/L Chloride 102 (98-107) mmol/L Carbon Dioxide 23.5 (21.0-32.0) mmol/L BUN 7 (7.0-18.0) mg/dL Creatinine 0.7 L (0.8-1.3) mg/dL Est Cr Clr Drug Dosing 104.29 Estimated GFR (MDRD) > 60.0 ml/min Glucose 91 (74-106) mg/dL Calcium 8.5 (8.5-10.1) mg/dL Total Bilirubin (0.2-1.0) mg/dL AST (15-37) IU/L ALT (14-63) IU/L Alkaline Phosphatase (46-116) U/L Troponin I (0.000-0.056) ng/mL Total Protein (6.4-8.2) g/dL Albumin (3.4-5.0) g/dL Globulin (2.6-4.0) g/dL Albumin/Globulin Ratio (0.9-1.6) Urine Color Urine Appearance Urine pH (5.0-8.0) Ur Specific [place] (1.001-1.035) Urine Protein (NEGATIVE) mg/dL Urine Glucose (UA) (NEGATIVE) mg/dL Urine Ketones (NEGATIVE) mg/dL Urine Occult Blood (NEGATIVE) Urine Nitrite (NEGATIVE) Urine Bilirubin (NEGATIVE) Urine Urobilinogen (<2.0) EU/dL Ur Leukocyte Esterase (NEGATIVE) Urine RBC (0-2/HPF) Urine WBC (0-5/HPF) Ur Epithelial Cells (NONE-FEW) Urine Bacteria (NEGATIVE) Urine Mucus (NONE-MOD) Result Diagrams: 11/28/18 06:40 11/28/18 06:40 Problem List Initiated/Reviewed/Updated: Yes Orders Last 24hrs: Active Orders 24 hr Category Date Time Status Admission Status [Patient Status] [ADT] Stat ADT 11/27/18 22:59 Active EKG Documentation Completion [RC] STAT Care 11/27/18 21:58 Active Regular Diet [DIET] Diet 11/28/18 Breakfast Active Sodium Chloride 0.9% [Normal Saline] 1,000 ml Med 11/28/18 01:00 Active IV ASDIRECTED Medication Orders Sodium Chloride (Normal Saline) 1,000 mls @ 125 mls/hr IV ASDIRECTED MANJEET Last Admin: 11/28/18 06:31 Dose: 125 mls/hr Assessment/Plan Comment:: 68 yo male admitted with dehydration, generalize weakness, and hyponatremia. We will hydrate with IV fluids and reassess again once hydrated.
[2018-11-29 06:12] LABS: CHLORIDE,CL 108 mmol/L (98-107); SODIUM,NA 139 mmol/L (136-148)
[2018-11-29] MEDS: Sodium Chloride 0.9% 1,000 ML IV SCH (07:24)
[2018-11-29] MEDS ORDERED: Gadobenate Dimeglumine 529 MG/ML 20 ML SDV IVPUSH STA (12:37)
--- NOTE | 2018-11-29 14:03 | MR ---
INDICATION: Altered mental status TECHNIQUE: Brain MRI with contrast. The following sequences were obtained: DWI and ADC mapping sequences. Axial FLAIR, SWI and MACARIO T2 weighted sequences. 3D T1 weighted precontrast and post-contrast sequences. 13 cc of MultiHance gadolinium based contrast agent was used. COMPARISON: CT head from 11/27/2018, CT head from 04/13/2018 FINDINGS: Focus of diffusion restriction within the left anterior medial thalamus, compatible with an acute infarct. No foci of diffusion restriction are seen elsewhere within the brain. Right anterior frontal gliosis and encephalomalacia, which could reflect sequela of prior ischemic or traumatic event. Extensive burden of T2 hyperintense signal change throughout the deep and periventricular white matter as well as the central brainstem, technically nonspecific but most likely reflecting chronic microvascular ischemic changes and senescent change in a patient of this age. No mass or focus of pathologic intracranial enhancement. No evidence of recent or prior hemorrhage. Mild generalized cerebral and cerebellar parenchymal volume loss. The configuration of the ventricular system is within normal limits, allowing for the degree of volume loss. The sella turcica, its contents and adjacent structures appear normal. All the major intracranial vascular structures demonstrate normal flow-related signal voids and intraluminal enhancement. The orbital contents are normal. No marrow signal abnormality. No signal abnormality within the paranasal sinuses. No signal abnormality within the mastoid air cells. The scalp and other imaged soft tissue structures are normal in appearance. IMPRESSION: 1. Acute infarct involving the left anterior medial thalamus. 2. Right frontal encephalomalacia and gliosis, likely from prior ischemic or traumatic event. Stable since 04/13/2018 CT. 3. Extensive burden of chronic white matter changes in the supratentorial white matter and brainstem. Favor sequelae of microvascular ischemia and senescent changes. 4. Mild generalized parenchymal volume loss. Dictated by Clinton Fraire MD @ Nov 29 2018 1:50PM Signed by Dr. Clinton Fraire @ Nov 29 2018 2:01PM
[2018-11-29] MEDS ORDERED: Aspirin 81 MG Tab.Chew PO ONE (14:13)
[2018-11-29] MEDS: Enoxaparin 40 MG/0.4 ML Syringe SUBCUT SCH (14:51)
--- NOTE | 2018-11-29 15:59 | PCM.PN ---
- General Info Date of Service: 11/29/18 Subjective Update: 68 y/o male admitted for altered mental status and found to have an acute infarct of the left anterior medial thalamus. This morning patient was alert and oriented to person, place. Not time. He stated that it was "2016". - Patient Data Vitals - Most Recent: Last Vital Signs Temp 36.6 C 11/29/18 11:00 Pulse 68 11/29/18 11:00 Resp 16 11/29/18 11:00 BP 149/79 H 11/29/18 11:00 Pulse Ox 97 11/29/18 11:00 Weight - Most Recent: 74.843 kg I&O - Last 24 Hours: Intake & Output 11/29/18 11/29/18 11/29/18 06:59 14:59 22:59 Intake Total 1240 1000 Output Total 300 Balance 940 1000 Lab Results Last 24 Hours: Laboratory Results - last 24 hr 11/29/18 11/29/18 Range/Units 05:40 05:40 WBC 5.61 (4.0-11.0) K/uL RBC 4.02 L (4.50-5.90) M/uL Hgb 12.4 L (13.0-17.0) g/dL Hct 36.7 L (38.0-50.0) % MCV 91.3 (80.0-98.0) fL MCH 30.8 (27.0-32.0) pg MCHC 33.8 (31.0-37.0) g/dL RDW Std Deviation 45.2 (28.0-62.0) fl RDW Coeff of Pamela 14 (11.0-15.0) % Plt Count 226 (150-400) K/uL MPV 9.60 (7.40-12.00) fL Nucleated RBC % 0.0 /100WBC Nucleated RBCs # 0 K/uL Sodium 139 (136-148) mmol/L Potassium 4.0 (3.5-5.1) mmol/L Chloride 108 H (98-107) mmol/L Carbon Dioxide 25.8 (21.0-32.0) mmol/L BUN 9 (7.0-18.0) mg/dL Creatinine 0.8 (0.8-1.3) mg/dL Est Cr Clr Drug Dosing 91.25 mL/min Estimated GFR (MDRD) > 60.0 ml/min Glucose 100 (74-106) mg/dL Calcium 8.4 L (8.5-10.1) mg/dL Med Orders - Current: Current Medications Atorvastatin Calcium (Lipitor) 40 mg PO BEDTIME MANJEET Enoxaparin Sodium (Lovenox) 40 mg SUBCUT Q24H [facility] Last Admin: 11/29/18 14:51 Dose: 40 mg Discontinued Medications Aspirin (Aspirin) 81 mg PO DAILY ONE Stop: 11/29/18 14:14 Last Admin: 11/29/18 14:51 Dose: 81 mg Gadobenate Dimeglumine (Multihance) 20 ml IVPUSH ONETIME STA Stop: 11/29/18 12:38 Last Admin: 11/29/18 12:38 Dose: 13 ml Sodium Chloride (Normal Saline) 1,000 mls @ 125 mls/hr IV STAT MANJEET Last Admin: 11/27/18 22:21 Dose: 125 mls/hr Sodium Chloride (Normal Saline) 1,000 mls @ 125 mls/hr IV ASDIRECTED [facility] Last Admin: 11/29/18 07:24 Dose: 125 mls/hr - Exam General: Oriented, Cooperative, No Acute Distress Lungs: Clear to Auscultation, Normal Respiratory Effort Cardiovascular: Regular Rate, Regular Rhythm GI/Abdominal Exam: Normal Bowel Sounds, Soft, Non-Tender Extremities: Normal Inspection, No Pedal Edema Skin: Warm, Dry Neurological: No New Focal Deficit - Problem List Review Problem List Initiated/Reviewed/Updated: Yes - My Orders Last 24 Hours: My Active Orders 11/29/18 12:53 Consult to Physical Therapy [PT Evaluation and Treatment] [CONS] Routine 11/29/18 14:14 Nursing Bedside Swallow Screen [RC] ASDIRECTED Consult to Speech Language Pathology [ROUSTABOUT CREW Evaluation and Treatment] [CONS] Routine 11/29/18 14:16 Neuro Check [RC] BID 11/29/18 14:23 Ang Head wo Cont [MR] Routine MRA Neck Without Contrast [Ang Neck wo Cont] [MR] Routine 11/29/18 14:30 Enoxaparin [Lovenox] 40 mg SUBCUT Q24H 11/29/18 21:00 atorvaSTATin [Lipitor] 40 mg PO BEDTIME 11/30/18 05:11 BASIC METABOLIC PANEL,BMP [CHEM] AM CBC W/O DIFF,HEMOGRAM [HEME] AM - Plan Plan:: A: 1. Acute infarct of the left medial thalamus 2. Hyponatremia, improving P: 1. Acute infarct of the left medial thalamus. Ordered bedside swallow screen, physical therapy. Consult speech therapy for evaluation. Start aspirin, atorvastatin. F/u MR head and neck. 2. Hyponatremia likely 2/2 his brain microvascular ischemic disease. Ordered urine studies. Continue IV fluids for now. Recheck Na tomorrow. Dispo: 1-2 days. attempted to call next of kin but no answer. Left voicemail.
--- NOTE | 2018-11-29 16:25 | MR ---
INDICATION: Stroke TECHNIQUE: 3D TOF MRA of the neck with 3D MIP reconstructions provided. All measurements are based on NASCET criteria. COMPARISON : None FINDINGS: Great vessel origins are widely patent. No stenosis or occlusion of the cervical carotid arteries or the cervical vertebral arteries. IMPRESSION: IMPRESSION1. No stenosis or occlusion of the cervical carotid arteries or the cervical vertebral arteries. Dictated by Clinton Fraire MD @ Nov 29 2018 4:15PM Signed by Dr. Clinton Fraire @ Nov 29 2018 4:23PM
--- NOTE | 2018-11-29 16:29 | MR ---
INDICATION: Stroke workup TECHNIQUE: Magnetic Resonance Angiography without contrast. 3D Time of Flight Sequence of the intracranial circulation. Maximum Intensity Reconstructions are provided. COMPARISON: None FINDINGS: The anterior and middle cerebral arteries are widely patent. The posterior cerebral arteries are widely patent. origin of the right posterior cerebral artery. The vertebral arteries and basilar artery are widely patent. The intracranial internal carotid arteries are widely patent. No aneurysm or vascular malformation. IMPRESSION: 1. Normal appearance of the intracranial arterial circulation, with no stenosis, occlusion or other vascular abnormality. Dictated by Clinton Fraire MD @ Nov 29 2018 4:15PM Signed by Dr. Clinton Fraire @ Nov 29 2018 4:27PM
[2018-11-29] MEDS ORDERED: atorvaSTATin 40 MG Tab PO SCH (21:00)
[2018-11-30 06:05] LABS: CHLORIDE,CL 101 mmol/L (98-107); SODIUM,NA 136 mmol/L (136-148)
[2018-11-30] MEDS ORDERED: Aspirin 81 MG Tab.Chew PO SCH (09:00)
--- NOTE | 2018-11-30 11:18 | PCM.DCSUM1 ---
Discharge Summary - Hospital Course Free Text/Narrative:: Moose Christensen is a 68 y/o male with history of COPD, tobacco abuse who presented to the ER confused and admitted for altered mental status and hyponatremia. CT head was negative for any intracranial bleed, however, MRA Brain showed an acute left anterior medial thalamus infarct. His hyponatremia improved with normal saline and family stated he was back to his baseline. He was started on Atorvastatin and aspirin. Physical therapy and speech therapy evaluated the patient and recommended outpatient follow-up. He was advised to quit smoking. He will need to follow-up with neurology as outpatient. - Discharge Data Discharge Date: 11/30/18 Discharge Disposition: Home, Self-Care 01 Condition: Fair - Patient Summary/Data Consults: Consultations 11/29/18 12:53 Consult to Physical Therapy [PT Evaluation and Treatment] [CONS] Routine 11/29/18 14:14 Consult to Speech Language Pathology [ORDER ENTRY Evaluation and Treatment] [CONS] Routine - Patient Instructions Diet: Heart Healthy Diet Activity: As Tolerated Notify Provider of: Fever, Increased Pain, Swelling and Redness, Nausea and/or Vomiting - Discharge Plan *PRESCRIPTION DRUG MONITORING PROGRAM REVIEWED*: Not Applicable *COPY OF PRESCRIPTION DRUG MONITORING REPORT IN PATIENT REN: Not Applicable Prescriptions/Med Rec: Aspirin [Adult Low Dose Aspirin EC] 81 mg PO DAILY #30 tablet. atorvaSTATin [Lipitor] 40 mg PO BEDTIME #30 tablet Home Medications: Home Meds Aspirin [Adult Low Dose Aspirin EC] 81 mg PO DAILY #30 tablet. 11/30/18 [Rx] atorvaSTATin [Lipitor] 40 mg PO BEDTIME #30 tablet 11/30/18 [Rx] Patient Handouts: Dehydration, Adult, [id number] Referrals: Niels Do MD [Primary Care Provider] - 12/09/18 9:00 am - Discharge Summary/Plan Comment DC Time >30 min.: No - Patient Data Vitals - Most Recent: Last Vital Signs Temp 36.5 C 11/30/18 04:00 Pulse 63 11/30/18 08:00 Resp 20 11/30/18 08:00 BP 151/85 H 11/30/18 08:00 Pulse Ox 95 11/30/18 08:00 Weight - Most Recent: 74.843 kg I&O - Last 24 hours: Intake & Output 11/29/18 11/30/18 11/30/18 22:59 06:59 14:59 Intake Total 1200 400 240 Output Total 1210 300 Balance -10 100 240 Lab Results - Last 24 hrs: Laboratory Results - last 24 hr 11/30/18 11/30/18 11/30/18 Range/Units 04:10 05:05 05:05 WBC 5.60 (4.0-11.0) K/uL RBC 3.88 L (4.50-5.90) M/uL Hgb 12.2 L (13.0-17.0) g/dL Hct 35.4 L (38.0-50.0) % MCV 91.2 (80.0-98.0) fL MCH 31.4 (27.0-32.0) pg MCHC 34.5 (31.0-37.0) g/dL RDW Std Deviation 44.7 (28.0-62.0) fl RDW Coeff of Pamela 13 (11.0-15.0) % Plt Count 222 (150-400) K/uL MPV 10.10 (7.40-12.00) fL Nucleated RBC % 0.0 /100WBC Nucleated RBCs # 0 K/uL Sodium 136 (136-148) mmol/L Potassium 3.6 (3.5-5.1) mmol/L Chloride 101 (98-107) mmol/L Carbon Dioxide 25.6 (21.0-32.0) mmol/L BUN 9 (7.0-18.0) mg/dL Creatinine 0.8 (0.8-1.3) mg/dL Est Cr Clr Drug Dosing 91.25 mL/min Estimated GFR (MDRD) > 60.0 ml/min Glucose 106 (74-106) mg/dL Calcium 8.3 L (8.5-10.1) mg/dL Ur Random Sodium 107.0 (40.0-220.0) mmol/L Ur Random Potassium 10.1 mmol/L Med Orders - Current: Current Medications Aspirin (Aspirin) 81 mg PO DAILY [facility] Last Admin: 11/30/18 08:51 Dose: 81 mg Atorvastatin Calcium (Lipitor) 40 mg PO BEDTIME [facility] Last Admin: 11/29/18 20:52 Dose: 40 mg Enoxaparin Sodium (Lovenox) 40 mg SUBCUT Q24H [facility] Last Admin: 11/29/18 14:51 Dose: 40 mg Discontinued Medications Aspirin (Aspirin) 81 mg PO DAILY ONE Stop: 11/29/18 14:14 Last Admin: 11/29/18 14:51 Dose: 81 mg Gadobenate Dimeglumine (Multihance) 20 ml IVPUSH ONETIME STA Stop: 11/29/18 12:38 Last Admin: 11/29/18 12:38 Dose: 13 ml Sodium Chloride (Normal Saline) 1,000 mls @ 125 mls/hr IV STAT [facility]JE[facility] Last Admin: 11/27/18 22:21 Dose: 125 mls/hr Sodium Chloride (Normal Saline) 1,000 mls @ 125 mls/hr IV ASDIRECTED MANJEET Last Admin: 11/29/18 07:24 Dose: 125 mls/hr - Exam General: Reports: Alert, Oriented, Cooperative, Other (Alert, oriented to person and place. Not time.) HEENT: Reports: Pupils Equal, Pupils Reactive Lungs: Reports: Clear to Auscultation, Normal Respiratory Effort Cardiovascular: Reports: Regular Rate, Regular Rhythm GI/Abdominal Exam: Normal Bowel Sounds, Soft, Non-Tender Rectal (Males) Exam: Normal Exam, Normal Rectal Tone Extremities: Normal Inspection, No Pedal Edema Neurological: Reports: No New Focal Deficit
[2018-11-30 12:36] VITALS: BP 128/62
[2018-11-30] MEDS: Enoxaparin 40 MG/0.4 ML Syringe SUBCUT SCH (14:27)
== END 2018-11-30 16:10 | disposition home or self-care (01) ==
LOC: MW.ED 21:41 → MW.MS 23:08
PROVIDERS: ADMIT Internal Medicine; ATTEND Internal Medicine
DX: I63.9 Cerebral infarction, unspecified (principal); R41.82 Altered mental status, unspecified; E87.1 Hypo-osmolality and hyponatremia; J44.9 Chronic obstructive pulmonary disease, unspecified; E78.00 Pure hypercholesterolemia, unspecified; I10 Essential (primary) hypertension; F17.210 Nicotine dependence, cigarettes, uncomplicated; Z79.82 Long term (current) use of aspirin; Z79.899 Other long term (current) drug therapy
CPT/HCPCS: 36415; 70450; 70544; 70547; 70553; 71045; 80048; 80053; 81001; 83735; 83935; 84133; 84300; 84484; 84540; 85025; 85027; 92523; 93005; 96360; 96361; 97161; 99285; A9270; A9577; J1650; J7040; 96372; G0378

== ENCOUNTER 2019-06-25 21:23 | Observation (INO) | payer MEDICARE, OTHER ==
[2019-06-25] MEDS ORDERED: Sodium Chloride 0.9% 10 ML SDV IV PRN (21:53)
[2019-06-25] MEDS ORDERED: Sodium Chloride 0.9% 1,000 ML IV STA (21:53)
[2019-06-25] MEDS ORDERED: Sodium Chloride 0.9% 2.5 ML Syringe FLUSH PRN (21:53)
[2019-06-25] MEDS ORDERED: Sodium Chloride 0.9% 10 ML Syringe FLUSH PRN (21:53)
--- NOTE | 2019-06-25 21:57 | EDM.PDOC ---
ED HPI GENERAL MEDICAL PROBLEM - General Chief Complaint: General Stated Complaint: DEHYDRATION Time Seen by Provider: 06/25/19 21:51 Source of Information: Reports: Patient, Family History Limitations: Reports: No Limitations - History of Present Illness INITIAL COMMENTS - FREE TEXT/NARRATIVE: Patient is a 69-year-old male who is complaining of having a syncopal episode lasting for approximately 5 minutes while at home playing cards with family. Family member states that he went completely limp but did not fall out of his chair and they tried to arouse him for approximately 5 minutes with him not responding. And then slowly improved but was noted to be diaphoretic at that time. Patient denies any chest pain or pressure or any palpitations any headache any numbness weakness or paresthesias any cough or upper respiratory symptoms he denies any bloody or tarry looking stools. He denies any numbness weakness or paresthesias. Patient has had a similar episode approximately 1 and half years ago also occurred while sitting at that time he was hospitalized for hyponatremia. And is a somewhat poor historian and has no complaints whatsoever right now. Onset: Today Location: Reports: Generalized Quality: Reports: Same as Previous Episode Improves with: Reports: None Worsens with: Reports: None Associated Symptoms: Reports: No Other Symptoms - Related Data Allergies Allergy/AdvReac Type Severity Reaction Status Date / Time No Known Allergies Allergy Verified 06/25/19 21:40 Home Meds: Home Meds Aspirin [Adult Low Dose Aspirin EC] 81 mg PO DAILY #30 tablet. 11/30/18 [Rx] atorvaSTATin [Lipitor] 40 mg PO BEDTIME #30 tablet 11/30/18 [Rx] Past Medical History - Past Health History Medical/Surgical History: Denies Medical/Surgical History HEENT History: Reports: Glaucoma Cardiovascular History: Reports: High Cholesterol, Hypertension Respiratory History: Reports: COPD Gastrointestinal History: Reports: Other (See Below) Other Gastrointestinal History: abdominal surgery on ulcer per pt Genitourinary History: Reports: None Musculoskeletal History: Reports: None Neurological History: Reports: None Psychiatric History: Reports: None Endocrine/Metabolic History: Reports: None Hematologic History: Reports: Other (See Below) Other Hematologic History: hyponatremia Immunologic History: Reports: None Oncologic (Cancer) History: Reports: None Dermatologic History: Reports: None - Infectious Disease History Infectious Disease History: Reports: Chicken Pox, Measles, Mumps - Past Surgical History GI Surgical History: Reports: Appendectomy Social & Family History - Family History Family Medical History: Noncontributory HEENT: Reports: None Cardiac: Reports: Bypass, Hypertension, [place] OBGYN: Reports: Oncologic: Reports: Pancreatic - Tobacco Use Smoking Status *Q: Current Every Day Smoker Years of Tobacco use: 50 Packs/Tins Daily: 1 - Caffeine Use Caffeine Use: Reports: Coffee - Recreational Drug Use Recreational Drug Use: Yes ED ROS GENERAL - Review of Systems Review Of Systems: Comprehensive ROS is negative, except as noted in HPI. ED EXAM, GENERAL - Physical Exam Exam: See Below Exam Limited By: No Limitations General Appearance: No Apparent Distress Eye Exam: Bilateral Eye: Normal Inspection Throat/Mouth: Normal Inspection Head: Atraumatic, Normocephalic Neck: Normal Inspection, Supple, Non-Tender, Full Range of Motion Respiratory/Chest: No Respiratory Distress, Lungs Clear Cardiovascular: Regular Rate, Rhythm, No Edema, No JVD GI/Abdominal: Normal Bowel Sounds, Soft, Non-Tender, No Organomegaly Back Exam: Normal Inspection Extremities: Normal Inspection, No Pedal Edema Neurological: Alert, Oriented, CN II-XII Intact, Normal Cognition, No Motor/ Sensory Deficits Psychiatric: Normal Affect, Normal Mood Skin Exam: Warm, Dry Lymphatic: No Adenopathy Course - Vital Signs Last Recorded V/S: Last Vital Signs Temp 36.0 C 06/25/19 21:40 Pulse 57 L 06/25/19 23:07 Resp 17 06/25/19 23:07 BP 141/74 H 06/25/19 23:07 Pulse Ox 93 L 06/25/19 23:07 - Orders/Labs/Meds Orders: Active Orders 24 hr Category Date Time Status Cardiac Monitoring [RC] . DIRECTED Care 06/25/19 21:53 Active EKG Documentation Completion [RC] STAT Care 06/25/19 21:53 Active UA RFX MIGNON AND CULT IF INDIC [URIN] Routine Lab 06/25/19 23:40 Ordered Sodium Chloride 0.9% [Normal Saline] Med 06/25/19 21:53 Active 10 ml IV ASDIRECTED PRN Sodium Chloride 0.9% [Normal Saline] 1,000 ml Med 06/25/19 21:53 Active IV NOW Sodium Chloride 0.9% [Saline Flush] Med 06/25/19 21:53 Active 10 ml FLUSH ASDIRECTED PRN Sodium Chloride 0.9% [Saline Flush] Med 06/25/19 21:53 Active 2.5 ml FLUSH ASDIRECTED PRN Peripheral IV Insertion Adult [OM.PC] Stat Oth 06/25/19 21:53 Ordered Medication Orders Sodium Chloride (Normal Saline) 1,000 mls @ 125 mls/hr IV NOW STA Stop: 06/26/19 05:52 Last Admin: 06/25/19 22:04 Dose: 125 mls/hr Sodium Chloride (Saline Flush) 10 ml FLUSH ASDIRECTED PRN PRN Reason: Keep Vein Open Sodium Chloride (Saline Flush) 2.5 ml FLUSH ASDIRECTED PRN PRN Reason: Keep Vein Open Sodium Chloride (Normal Saline) 10 ml IV ASDIRECTED PRN PRN Reason: IV Use Labs: Laboratory Tests 06/25/19 06/25/19 Range/Units 21:56 21:56 WBC 8.05 (4.0-11.0) K/uL RBC 4.68 (4.50-5.90) M/uL Hgb 15.1 (13.0-17.0) g/dL Hct 44.2 (38.0-50.0) % MCV 94.4 (80.0-98.0) fL MCH 32.3 H (27.0-32.0) pg MCHC 34.2 (31.0-37.0) g/dL RDW Std Deviation 48.4 (28.0-62.0) fl RDW Coeff of Pamela 14 (11.0-15.0) % Plt Count 250 (150-400) K/uL MPV 9.80 (7.40-12.00) fL Neut % (Auto) 76.1 (48.0-80.0) % Lymph % (Auto) 15.2 L (16.0-40.0) % [place] % (Auto) 7.8 (0.0-15.0) % Eos % (Auto) 0.7 (0.0-7.0) % Baso % (Auto) 0.2 (0.0-1.5) % Neut # (Auto) 6.1 H (1.4-5.7) K/uL Lymph # (Auto) 1.2 (0.6-2.4) K/uL [place] # (Auto) 0.6 (0.0-0.8) K/uL Eos # (Auto) 0.1 (0.0-0.7) K/uL Baso # (Auto) 0.0 (0.0-0.1) K/uL Nucleated RBC % 0.0 /100WBC Nucleated RBCs # 0 K/uL Sodium 140 (136-148) mmol/L Potassium 4.0 (3.5-5.1) mmol/L Chloride 104 (98-107) mmol/L Carbon Dioxide 27.5 (21.0-32.0) mmol/L BUN 21 H (7.0-18.0) mg/dL Creatinine 0.9 (0.8-1.3) mg/dL Est Cr Clr Drug Dosing 63.22 mL/min Estimated GFR (MDRD) > 60.0 ml/min Glucose 114 H (74-106) mg/dL Calcium 8.3 L (8.5-10.1) mg/dL Total Bilirubin 0.3 (0.2-1.0) mg/dL AST 20 (15-37) IU/L ALT 18 (14-63) IU/L Alkaline Phosphatase 78 (46-116) U/L Troponin I < 0.050 (0.000-0.056) ng/mL Total Protein 7.4 (6.4-8.2) g/dL Albumin 3.8 (3.4-5.0) g/dL Globulin 3.6 (2.6-4.0) g/dL Albumin/Globulin Ratio 1.1 (0.9-1.6) Meds: Medications Generic Name Dose Route Start Last Admin Trade Name Freq PRN Reason Stop Dose Admin Sodium Chloride 1,000 mls @ 125 mls/hr 06/25/19 21:53 06/25/19 22:04 Normal Saline IV 06/26/19 05:52 125 mls/hr NOW STA Administration Sodium Chloride 10 ml 06/25/19 21:53 Saline Flush FLUSH ASDIRECTED PRN Keep Vein Open Sodium Chloride 2.5 ml 06/25/19 21:53 Saline Flush FLUSH ASDIRECTED PRN Keep Vein Open Sodium Chloride 10 ml 06/25/19 21:53 Normal Saline IV ASDIRECTED PRN IV Use - Re-Assessments/Exams Free Text/Narrative Re-Assessment/Exam: 06/25/19 23:55 Patient's EKG shows him to be a normal sinus rhythm without any ST or T wave changes. Patient's lab work is unremarkable. His heart rate was as low as 57. I have discussed his findings with Dr. Hernandez who agrees that he should be admitted to the telemetry at this point. My expectation is if everything is normal tomorrow he will be sent home with event or Holter type monitor. She is aware and agreeable with these plans. Departure - Departure Time of Disposition: 23:56 Disposition: DC/Tfer to [facility] 02 Condition: Good Clinical Impression: Syncopal episodes - Discharge Information Sepsis Event Note - Evaluation Sepsis Screening Result: No Definite Risk - Focused Exam Vital Signs: Vital Signs Temp Pulse Resp BP Pulse Ox 06/25/19 23:07 57 L 17 141/74 H 93 L 06/25/19 22:37 59 L 146/80 H 95 06/25/19 22:07 61 16 146/73 H 96 06/25/19 21:40 36.0 C 70 18 154/79 H 97 Date Exam was Performed: 06/25/19 Time Exam was Performed: 23:54 - My Orders Last 24 Hours: My Active Orders 06/25/19 21:53 Cardiac Monitoring [RC] . DIRECTED EKG Documentation Completion [RC] STAT Sodium Chloride 0.9% [Normal Saline] 10 ml IV ASDIRECTED PRN Sodium Chloride 0.9% [Normal Saline] 1,000 ml IV NOW Sodium Chloride 0.9% [Saline Flush] 10 ml FLUSH ASDIRECTED PRN Sodium Chloride 0.9% [Saline Flush] 2.5 ml FLUSH ASDIRECTED PRN Peripheral IV Insertion Adult [OM.PC] Stat - Assessment/Plan Last 24 Hours: My Active Orders 06/25/19 21:53 Cardiac Monitoring [RC] . DIRECTED EKG Documentation Completion [RC] STAT Sodium Chloride 0.9% [Normal Saline] 10 ml IV ASDIRECTED PRN Sodium Chloride 0.9% [Normal Saline] 1,000 ml IV NOW Sodium Chloride 0.9% [Saline Flush] 10 ml FLUSH ASDIRECTED PRN Sodium Chloride 0.9% [Saline Flush] 2.5 ml FLUSH ASDIRECTED PRN Peripheral IV Insertion Adult [OM.PC] Stat
[2019-06-25 22:39] LABS: BLOOD UREA NITROGEN,BUN 21 mg/dL (7.0-18.0); CARBON DIOXIDE,CO2 27.5 mmol/L (21.0-32.0); CHLORIDE,CL 104 mmol/L (98-107); GLUCOSE RANDOM 114 mg/dL (74-106); SODIUM,NA 140 mmol/L (136-148)
--- NOTE | 2019-06-26 13:04 | PCM.HP.2 ---
H&P History of Present Illness - General Date of Service: 06/26/19 Admit Problem/Dx: Admission Diagnosis/Problem Admission Diagnosis/Problem Syncope and collapse - History of Present Illness Initial Comments - Free Text/Narative: 69 yo male with pmh of HTN, COPD and CVA who presents to the ED following a syncopal event. PAtient was sitting in chair playing cards [place] family when he became limp. He did not fall. He was unresponsive for about five minutes. Patient was evaluated in the ED and noted to have a negative CT head. In the ED He reported feeling his usual self no pain Pain Score (Numeric/FACES): 0 - Related Data Allergies/Adverse Reactions: Allergies Allergy/AdvReac Type Severity Reaction Status Date / Time No Known Allergies Allergy Verified 06/26/19 01:13 Home Medications: Home Meds Aspirin 81 mg PO DAILY 30 Days #30 tab.chew 06/27/19 [Rx] atorvaSTATin [Lipitor] 40 mg PO BEDTIME 30 Days #30 tablet 06/27/19 [Rx] Past Medical History - Past Health History Medical/Surgical History: Denies Medical/Surgical History HEENT History: Reports: Glaucoma Cardiovascular History: Reports: High Cholesterol, Hypertension Respiratory History: Reports: COPD Gastrointestinal History: Reports: Other (See Below) Other Gastrointestinal History: abdominal surgery on ulcer per pt Genitourinary History: Reports: None Musculoskeletal History: Reports: None Neurological History: Reports: None Psychiatric History: Reports: None Endocrine/Metabolic History: Reports: None Hematologic History: Reports: Other (See Below) Other Hematologic History: hyponatremia Immunologic History: Reports: None Oncologic (Cancer) History: Reports: None Dermatologic History: Reports: None - Infectious Disease History Infectious Disease History: Reports: Chicken Pox, Measles, Mumps - Past Surgical History GI Surgical History: Reports: Appendectomy Social & Family History - Family History Family Medical History: Noncontributory HEENT: Reports: None Cardiac: Reports: Bypass, Hypertension, [place] OBGYN: Reports: None Oncologic: Reports: Pancreatic - Tobacco Use Smoking Status *Q: Current Every Day Smoker Years of Tobacco use: 50 Packs/Tins Daily: 0.5 - Caffeine Use Caffeine Use: Reports: Coffee, Soda - Alcohol Use Days Per Week of Alcohol Use: 7 Number of Drinks Per Day: 1 Total Drinks Per Week: 7 - Recreational Drug Use Recreational Drug Use: No H&P Review of Systems - Review of Systems: Review Of Systems: See Below Exam - Exam Exam: See Below - Vital Signs Vital Signs: Last Vital Signs Temp 36.6 C 06/26/19 11:00 Pulse 72 06/26/19 11:00 Resp 20 06/26/19 11:00 BP 130/72 06/26/19 11:00 Pulse Ox 94 L 06/26/19 11:00 Weight: 58.5 kg - Exam General: Alert, Oriented HEENT: Mucosa Moist & [place], Posterior Pharynx Clear Neck: Supple, Trachea Midline Lungs: Clear to Auscultation, Normal Respiratory Effort Cardiovascular: Regular Rate, Regular Rhythm GI/Abdominal Exam: Soft, Non-Tender Extremities: Non-Tender, No Pedal Edema - Patient Data Lab Results Last 24 hrs: Laboratory Results - last 24 hr 06/25/19 06/25/19 Range/Units 21:56 21:56 WBC 8.05 (4.0-11.0) K/uL RBC 4.68 (4.50-5.90) M/uL Hgb 15.1 (13.0-17.0) g/dL Hct 44.2 (38.0-50.0) % MCV 94.4 (80.0-98.0) fL MCH 32.3 H (27.0-32.0) pg MCHC 34.2 (31.0-37.0) g/dL RDW Std Deviation 48.4 (28.0-62.0) fl RDW Coeff of Pamela 14 (11.0-15.0) % Plt Count 250 (150-400) K/uL MPV 9.80 (7.40-12.00) fL Neut % (Auto) 76.1 (48.0-80.0) % Lymph % (Auto) 15.2 L (16.0-40.0) % [place] % (Auto) 7.8 (0.0-15.0) % Eos % (Auto) 0.7 (0.0-7.0) % Baso % (Auto) 0.2 (0.0-1.5) % Neut # (Auto) 6.1 H (1.4-5.7) K/uL Lymph # (Auto) 1.2 (0.6-2.4) K/uL [place] # (Auto) 0.6 (0.0-0.8) K/uL Eos # (Auto) 0.1 (0.0-0.7) K/uL Baso # (Auto) 0.0 (0.0-0.1) K/uL Nucleated RBC % 0.0 /100WBC Nucleated RBCs # 0 K/uL Sodium 140 (136-148) mmol/L Potassium 4.0 (3.5-5.1) mmol/L Chloride 104 (98-107) mmol/L Carbon Dioxide 27.5 (21.0-32.0) mmol/L BUN 21 H (7.0-18.0) mg/dL Creatinine 0.9 (0.8-1.3) mg/dL Est Cr Clr Drug Dosing 63.22 mL/min Estimated GFR (MDRD) > 60.0 ml/min Glucose 114 H (74-106) mg/dL Calcium 8.3 L (8.5-10.1) mg/dL Total Bilirubin 0.3 (0.2-1.0) mg/dL AST 20 (15-37) IU/L ALT 18 (14-63) IU/L Alkaline Phosphatase 78 (46-116) U/L Troponin I < 0.050 (0.000-0.056) ng/mL Total Protein 7.4 (6.4-8.2) g/dL Albumin 3.8 (3.4-5.0) g/dL Globulin 3.6 (2.6-4.0) g/dL Albumin/Globulin Ratio 1.1 (0.9-1.6) Result Diagrams: 06/27/19 05:45 06/27/19 05:45 Sepsis Event Note - Evaluation Sepsis Screening Result: No Definite Risk - Focused Exam Vital Signs: Vital Signs Temp Pulse Resp BP Pulse Ox 06/26/19 11:00 36.6 C 72 20 130/72 94 L 06/26/19 07:39 36.2 C 64 14 143/72 H 94 L 06/26/19 04:00 36.4 C 61 18 156/75 H 96 Date Exam was Performed: 06/30/19 Time Exam was Performed: 14:25 Problem List Initiated/Reviewed/Updated: Yes Orders Last 24hrs: Active Orders 24 hr Category Date Time Status Admission Status [Patient Status] [ADT] Stat ADT 06/25/19 23:47 Active Antiembolic Devices [RC] PER UNIT ROUTINE Care 06/26/19 12:56 Active Cardiac Monitoring [RC] . DIRECTED Care 06/25/19 21:53 Active EKG Documentation Completion [RC] STAT Care 06/25/19 21:53 Active Influenza Vaccine Charge [RC] .DISCHARGE Care 06/26/19 00:37 Active Oxygen Therapy [RC] PRN Care 06/26/19 12:56 Active Telemetry Monitoring [Cardiac Monitoring] [RC] Q8H Care 06/26/19 00:07 Active Up ad Maryann [RC] ASDIRECTED Care 06/26/19 12:55 Active VTE/DVT Education [RC] PER UNIT ROUTINE Care 06/26/19 12:56 Active Vital Signs [RC] Q4H Care 06/26/19 12:56 Active Regular Diet [DIET] Diet 06/26/19 Breakfast Active BASIC METABOLIC PANEL,BMP [CHEM] AM Lab 06/27/19 05:11 Ordered CBC WITH AUTO DIFF [HEME] AM Lab 06/27/19 05:11 Ordered UA RFX MIGNON AND CULT IF INDIC [URIN] Routine Lab 06/25/19 23:40 Ordered Sodium Chloride 0.9% [Normal Saline] Med 06/25/19 21:53 Active 10 ml IV ASDIRECTED PRN Sodium Chloride 0.9% [Saline Flush] Med 06/25/19 21:53 Active 10 ml FLUSH ASDIRECTED PRN Sodium Chloride 0.9% [Saline Flush] Med 06/25/19 21:53 Active 2.5 ml FLUSH ASDIRECTED PRN Peripheral IV Insertion Adult [OM.PC] Stat Oth 06/25/19 21:53 Ordered Sequential Compression Device [OM.PC] Per Unit Routine Oth 06/26/19 12:56 Ordered Resuscitation Status Routine Resus Stat 06/26/19 12:55 Ordered Medication Orders Sodium Chloride (Saline Flush) 10 ml FLUSH ASDIRECTED PRN PRN Reason: Keep Vein Open Sodium Chloride (Saline Flush) 2.5 ml FLUSH ASDIRECTED PRN PRN Reason: Keep Vein Open Sodium Chloride (Normal Saline) 10 ml IV ASDIRECTED PRN PRN Reason: IV Use Assessment/Plan Comment:: 69 yo male admitted to telemetry for monitoring after a syncopal event.
[2019-06-27 06:12] LABS: BLOOD UREA NITROGEN,BUN 13 mg/dL (7.0-18.0); CARBON DIOXIDE,CO2 24.4 mmol/L (21.0-32.0); CHLORIDE,CL 103 mmol/L (98-107); GLUCOSE RANDOM 82 mg/dL (74-106); POTASSIUM,K 3.5 mmol/L (3.5-5.1); SODIUM,NA 137 mmol/L (136-148)
--- NOTE | 2019-06-27 09:51 | PCM.PN ---
- General Info Date of Service: 06/27/19 Subjective Update: Bedside: discussing event with patient; denies any history of this happening in past or hx. of COPD, strokes; denies taking any medications at home. Endorses drinking ETOH and smoking daily. Currently denies any issues and or pain. Functional Status: Reports: Pain Controlled - Review of Systems General: Reports: No Symptoms Pulmonary: Reports: No Symptoms Cardiovascular: Reports: No Symptoms Gastrointestinal: Reports: No Symptoms Genitourinary: Reports: No Symptoms Musculoskeletal: Reports: No Symptoms Neurological: Reports: No Symptoms. Denies: Confusion, Dizziness, Headache Psychiatric: Reports: No Symptoms - Patient Data Vitals - Most Recent: Last Vital Signs Temp 98.3 F 06/27/19 07:34 Pulse 55 L 06/27/19 07:34 Resp 13 06/27/19 07:34 BP 150/76 H 06/27/19 07:34 Pulse Ox 96 06/27/19 07:34 Weight - Most Recent: 128 lb 15.527 oz I&O - Last 24 Hours: Intake & Output 06/26/19 06/27/19 06/27/19 22:59 06:59 14:59 Intake Total 540 50 Output Total 140 100 Balance 400 -50 Lab Results Last 24 Hours: Laboratory Results - last 24 hr 06/25/19 06/27/19 06/27/19 Range/Units 15:00 05:45 05:45 WBC 7.47 (4.0-11.0) K/uL RBC 3.85 L (4.50-5.90) M/uL Hgb 12.2 L (13.0-17.0) g/dL Hct 35.4 L (38.0-50.0) % MCV 91.9 (80.0-98.0) fL MCH 31.7 (27.0-32.0) pg MCHC 34.5 (31.0-37.0) g/dL RDW Std Deviation 46.6 (28.0-62.0) fl RDW Coeff of Pamela 14 (11.0-15.0) % Plt Count 231 (150-400) K/uL MPV 9.90 (7.40-12.00) fL Neut % (Auto) 51.9 (48.0-80.0) % Lymph % (Auto) 31.3 (16.0-40.0) % [place] % (Auto) 14.7 (0.0-15.0) % Eos % (Auto) 1.7 (0.0-7.0) % Baso % (Auto) 0.4 (0.0-1.5) % Neut # (Auto) 3.9 (1.4-5.7) K/uL Lymph # (Auto) 2.3 (0.6-2.4) K/uL [place] # (Auto) 1.1 H (0.0-0.8) K/uL Eos # (Auto) 0.1 (0.0-0.7) K/uL Baso # (Auto) 0.0 (0.0-0.1) K/uL Nucleated RBC % 0.0 /100WBC Nucleated RBCs # 0 K/uL Sodium 137 (136-148) mmol/L Potassium 3.5 (3.5-5.1) mmol/L Chloride 103 (98-107) mmol/L Carbon Dioxide 24.4 (21.0-32.0) mmol/L BUN 13 (7.0-18.0) mg/dL Creatinine 0.7 L (0.8-1.3) mg/dL Est Cr Clr Drug Dosing 82.41 mL/min Estimated GFR (MDRD) > 60.0 ml/min Glucose 82 (74-106) mg/dL Calcium 7.7 L (8.5-10.1) mg/dL Urine Color YELLOW Urine Appearance CLEAR Urine pH 5.5 (5.0-8.0) Ur Specific [place] >= 1.030 (1.001-1.035) Urine Protein TRACE H (NEGATIVE) mg/dL Urine Glucose (UA) NEGATIVE (NEGATIVE) mg/dL Urine Ketones NEGATIVE (NEGATIVE) mg/dL Urine Occult Blood NEGATIVE (NEGATIVE) Urine Nitrite NEGATIVE (NEGATIVE) Urine Bilirubin SMALL H (NEGATIVE) Urine Ictotest NEGATIVE Urine Urobilinogen 0.2 (<2.0) EU/dL Ur Leukocyte Esterase NEGATIVE (NEGATIVE) Urine RBC 0-2 (0-2/HPF) Urine WBC 0-2 (0-5/HPF) Ur Epithelial Cells RARE (NONE-FEW) Urine Bacteria FEW (NEGATIVE) Urine Mucus MODERATE (NONE-MOD) Med Orders - Current: Current Medications Sodium Chloride (Saline Flush) 10 ml FLUSH ASDIRECTED PRN PRN Reason: Keep Vein Open Sodium Chloride (Saline Flush) 2.5 ml FLUSH ASDIRECTED PRN PRN Reason: Keep Vein Open Sodium Chloride (Normal Saline) 10 ml IV ASDIRECTED PRN PRN Reason: IV Use Discontinued Medications Sodium Chloride (Normal Saline) 1,000 mls @ 125 mls/hr IV NOW STA Stop: 06/26/19 05:52 Last Admin: 06/25/19 22:04 Dose: 125 mls/hr Influenza Virus Vaccine (Pharmacy To Dose - Influenza Vaccine) 1 each IM ONETIME ONE Stop: 06/26/19 00:38 Influenza Virus Vaccine (Fluzone High-Dose Syringe) 180 mcg IM .ONCE ONE Stop: 06/26/19 10:01 - Exam Quality Assessment: No: Supplemental Oxygen General: Alert, Oriented, Cooperative HEENT: Pupils Equal, EOMI Neck: Supple Lungs: Clear to Auscultation, Normal Respiratory Effort Cardiovascular: Regular Rate, Regular Rhythm GI/Abdominal Exam: Normal Bowel Sounds Skin: Warm, Dry Psy/Mental Status: Alert, Normal Affect Sepsis Event Note - Evaluation Sepsis Screening Result: No Definite Risk - Focused Exam Vital Signs: Vital Signs Temp Pulse Resp BP Pulse Ox 06/27/19 07:34 98.3 F 55 L 13 150/76 H 96 06/27/19 03:55 97.8 F 52 L 18 162/77 H 97 06/27/19 00:00 97.3 F 57 L 18 144/74 H 94 L Date Exam was Performed: 06/27/19 Time Exam was Performed: 09:43 - Problem List Review Problem List Initiated/Reviewed/Updated: Yes - Plan Plan:: Assessment: 1. Syncopal event 2. PMH: Stroke HTN/COPD Plan: 1. Continue telemetry; restart atorvastatin and ASA daily; pt. possibly non- compliant and not taking medications; 2. pt. may require a home holter monitor 3. History of ETOH abuse : ciwaa and Ativan protocol 4. Consult for pt/ot and speech 5.
[2019-06-27] MEDS ORDERED: Aspirin 81 MG Tab.Chew PO SCH (10:45)
--- NOTE | 2019-06-27 11:32 | PCM.DCSUM1 ---
Discharge Summary - Hospital Course Free Text/Narrative:: Discharge summary Admission date 06-26-2019 Discharge date 06-27-2019 Admission diagnoses: Witnessed syncopal event Medical non-compliance COPD HTN Consultations: None Procedures:none Hospital course: Is a 69-year-old male with a past medical history of hypertension, COPD, CVA with recent stroke in November 2018 as found on MRI of brain; presented on June 26 with 5 minutes of witnessed syncope. Patient was sitting down while playing cards when he became unresponsive and began to slouch in his chair. Patient was having a hard time being roused and subsequently taken to the ED. ED course: EKG sinus, troponin negative, chest x-ray negative. Admission: Patient was stable was not experiencing any pain or discomfort or changes in mentation. Son endorses that patient has not been compliant as did not know that he was supposed to be taking his aspirin 81 mg daily and atorvastatin from his previous admission. Requesting to go home stating he did not feel anything. Discharged with a prescription for Zio patch secondary to syncope and follow-up with the PCP/neurology. Discharge condition:Stable Disposition:Home Discharge medications:ASA 81 mg+Atorvastatin Follow-up: PCP /Neurology - Discharge Data Discharge Date: 06/27/19 Discharge Disposition: Home, Self-Care 01 Condition: Fair - Referral to Home Health Primary Care Physician: Niels Do MD - Patient Instructions Diet: Heart Healthy Diet - Discharge Plan Prescriptions/Med Rec: Aspirin 81 mg PO DAILY 30 Days #30 tab.chew atorvaSTATin [Lipitor] 40 mg PO BEDTIME 30 Days #30 tablet Home Medications: Home Meds Aspirin 81 mg PO DAILY 30 Days #30 tab.chew 06/27/19 [Rx] atorvaSTATin [Lipitor] 40 mg PO BEDTIME 30 Days #30 tablet 06/27/19 [Rx] Patient Handouts: Atorvastatin tablets, Aspirin, ASA oral tablets, Syncope, [id number] Referrals: Deepa Pimentel MD [Physician] - 07/20/19 9:00 am Kami Terry PA [Physician [employer]] - 07/01/19 2:45 pm (Was not able to be made with Dr. Do due to being out 3-4 weeks.) - Discharge Summary/Plan Comment DC Time >30 min.: No - Patient Data Vitals - Most Recent: Last Vital Signs Temp 98.3 F 06/27/19 07:34 Pulse 55 L 06/27/19 07:34 Resp 13 06/27/19 07:34 BP 150/76 H 06/27/19 07:34 Pulse Ox 96 06/27/19 07:34 Weight - Most Recent: 128 lb 15.527 oz I&O - Last 24 hours: Intake & Output 06/26/19 06/27/19 06/27/19 22:59 06:59 14:59 Intake Total 540 50 Output Total 140 100 Balance 400 -50 Lab Results - Last 24 hrs: Laboratory Results - last 24 hr 06/25/19 06/27/19 06/27/19 Range/Units 15:00 05:45 05:45 WBC 7.47 (4.0-11.0) K/uL RBC 3.85 L (4.50-5.90) M/uL Hgb 12.2 L (13.0-17.0) g/dL Hct 35.4 L (38.0-50.0) % MCV 91.9 (80.0-98.0) fL MCH 31.7 (27.0-32.0) pg MCHC 34.5 (31.0-37.0) g/dL RDW Std Deviation 46.6 (28.0-62.0) fl RDW Coeff of Pamela 14 (11.0-15.0) % Plt Count 231 (150-400) K/uL MPV 9.90 (7.40-12.00) fL Neut % (Auto) 51.9 (48.0-80.0) % Lymph % (Auto) 31.3 (16.0-40.0) % [place] % (Auto) 14.7 (0.0-15.0) % Eos % (Auto) 1.7 (0.0-7.0) % Baso % (Auto) 0.4 (0.0-1.5) % Neut # (Auto) 3.9 (1.4-5.7) K/uL Lymph # (Auto) 2.3 (0.6-2.4) K/uL [place] # (Auto) 1.1 H (0.0-0.8) K/uL Eos # (Auto) 0.1 (0.0-0.7) K/uL Baso # (Auto) 0.0 (0.0-0.1) K/uL Nucleated RBC % 0.0 /100WBC Nucleated RBCs # 0 K/uL Sodium 137 (136-148) mmol/L Potassium 3.5 (3.5-5.1) mmol/L Chloride 103 (98-107) mmol/L Carbon Dioxide 24.4 (21.0-32.0) mmol/L BUN 13 (7.0-18.0) mg/dL Creatinine 0.7 L (0.8-1.3) mg/dL Est Cr Clr Drug Dosing 82.41 mL/min Estimated GFR (MDRD) > 60.0 ml/min Glucose 82 (74-106) mg/dL Hemoglobin A1c (4.5-6.2) % Calcium 7.7 L (8.5-10.1) mg/dL Urine Color YELLOW Urine Appearance CLEAR Urine pH 5.5 (5.0-8.0) Ur Specific [place] >= 1.030 (1.001-1.035) Urine Protein TRACE H (NEGATIVE) mg/dL Urine Glucose (UA) NEGATIVE (NEGATIVE) mg/dL Urine Ketones NEGATIVE (NEGATIVE) mg/dL Urine Occult Blood NEGATIVE (NEGATIVE) Urine Nitrite NEGATIVE (NEGATIVE) Urine Bilirubin SMALL H (NEGATIVE) Urine Ictotest NEGATIVE Urine Urobilinogen 0.2 (<2.0) EU/dL Ur Leukocyte Esterase NEGATIVE (NEGATIVE) Urine RBC 0-2 (0-2/HPF) Urine WBC 0-2 (0-5/HPF) Ur Epithelial Cells RARE (NONE-FEW) Urine Bacteria FEW (NEGATIVE) Urine Mucus MODERATE (NONE-MOD) 06/27/19 Range/Units 05:45 WBC (4.0-11.0) K/uL RBC (4.50-5.90) M/uL Hgb (13.0-17.0) g/dL Hct (38.0-50.0) % MCV (80.0-98.0) fL MCH (27.0-32.0) pg MCHC (31.0-37.0) g/dL RDW Std Deviation (28.0-62.0) fl RDW Coeff of Pamela (11.0-15.0) % Plt Count (150-400) K/uL MPV (7.40-12.00) fL Neut % (Auto) (48.0-80.0) % Lymph % (Auto) (16.0-40.0) % [place] % (Auto) (0.0-15.0) % Eos % (Auto) (0.0-7.0) % Baso % (Auto) (0.0-1.5) % Neut # (Auto) (1.4-5.7) K/uL Lymph # (Auto) (0.6-2.4) K/uL [place] # (Auto) (0.0-0.8) K/uL Eos # (Auto) (0.0-0.7) K/uL Baso # (Auto) (0.0-0.1) K/uL Nucleated RBC % /100WBC Nucleated RBCs # K/uL Sodium (136-148) mmol/L Potassium (3.5-5.1) mmol/L Chloride (98-107) mmol/L Carbon Dioxide (21.0-32.0) mmol/L BUN (7.0-18.0) mg/dL Creatinine (0.8-1.3) mg/dL Est Cr Clr Drug Dosing mL/min Estimated GFR (MDRD) ml/min Glucose (74-106) mg/dL Hemoglobin A1c 6.0 (4.5-6.2) % Calcium (8.5-10.1) mg/dL Urine Color Urine Appearance Urine pH (5.0-8.0) Ur Specific [place] (1.001-1.035) Urine Protein (NEGATIVE) mg/dL Urine Glucose (UA) (NEGATIVE) mg/dL Urine Ketones (NEGATIVE) mg/dL Urine Occult Blood (NEGATIVE) Urine Nitrite (NEGATIVE) Urine Bilirubin (NEGATIVE) Urine Ictotest Urine Urobilinogen (<2.0) EU/dL Ur Leukocyte Esterase (NEGATIVE) Urine RBC (0-2/HPF) Urine WBC (0-5/HPF) Ur Epithelial Cells (NONE-FEW) Urine Bacteria (NEGATIVE) Urine Mucus (NONE-MOD) Med Orders - Current: Current Medications Aspirin (Aspirin) 81 mg PO DAILY MANJEET Atorvastatin Calcium (Lipitor) 40 mg PO BEDTIME [place] Sodium Chloride (Saline Flush) 10 ml FLUSH ASDIRECTED PRN PRN Reason: Keep Vein Open Sodium Chloride (Saline Flush) 2.5 ml FLUSH ASDIRECTED PRN PRN Reason: Keep Vein Open Sodium Chloride (Normal Saline) 10 ml IV ASDIRECTED PRN PRN Reason: IV Use Discontinued Medications Sodium Chloride (Normal Saline) 1,000 mls @ 125 mls/hr IV NOW STA Stop: 06/26/19 05:52 Last Admin: 06/25/19 22:04 Dose: 125 mls/hr Influenza Virus Vaccine (Pharmacy To Dose - Influenza Vaccine) 1 each IM ONETIME ONE Stop: 06/26/19 00:38 Influenza Virus Vaccine (Fluzone High-Dose 2019-20 Syringe) 180 mcg IM .ONCE ONE Stop: 06/26/19 10:01
[2019-06-27 12:05] VITALS: BP 123/66; PULSE 61
[2019-06-27] MEDS ORDERED: atorvaSTATin 40 MG Tab PO SCH (21:00)
== END 2019-06-27 11:50 | disposition home or self-care (01) ==
LOC: MW.ED 21:23 → MW.MS 23:42
PROVIDERS: ADMIT Internal Medicine; ATTEND Internal Medicine
DX: R55 Syncope and collapse (principal); J44.9 Chronic obstructive pulmonary disease, unspecified; I10 Essential (primary) hypertension; E78.00 Pure hypercholesterolemia, unspecified; F17.210 Nicotine dependence, cigarettes, uncomplicated; Z86.73 Personal history of transient ischemic attack (TIA), and cerebral infarction without residual deficits; Z79.82 Long term (current) use of aspirin; Z79.899 Other long term (current) drug therapy; Z91.19 Patient's noncompliance with other medical treatment and regimen
CPT/HCPCS: 36415; 80048; 80053; 81001; 83036; 84484; 85025; 93005; 96360; 96361; 99285; G0378; J7030; 99283

== ENCOUNTER 2022-05-22 14:47 | Inpatient (IN) | payer MEDICARE, OTHER ==
[2022-05-22] MEDS ORDERED: Sodium Chloride 0.9% 2.5 ML Syringe FLUSH PRN (15:22)
[2022-05-22] MEDS ORDERED: Sodium Chloride 0.9% 10 ML Syringe FLUSH PRN (15:22)
[2022-05-22] MEDS ORDERED: Sodium Chloride 0.9% 1,000 ML IV ONE (15:44)
[2022-05-22 16:08] LABS: CORONAVIRUS COVID-19 NAA NEGATIVE (NEGATIVE); INFLUENZA A NAA NEGATIVE (NEGATIVE); INFLUENZA B NAA NEGATIVE (NEGATIVE)
[2022-05-22 17:05] LABS: CARBON DIOXIDE,CO2 29.6 mmol/L (21.0-32.0); POTASSIUM,K 3.8 mmol/L (3.5-5.1)
[2022-05-22] MEDS ORDERED: Acetaminophen 325 MG Tab PO PRN (20:32)
[2022-05-22] MEDS ORDERED: Albuterol/Ipratropium 3.0-0.5 MG/3 ML Neb Soln NEB PRN (20:32)
[2022-05-22] MEDS ORDERED: Ondansetron 4 MG/2 ML SDV IVPUSH PRN (20:35)
[2022-05-22] MEDS: Pantoprazole 40 MG in Sodium Chloride 0.9% 10 ML IVPUSH SCH (21:08)
[2022-05-22] MEDS: Dronabinol 2.5 MG Cap PO SCH (21:08)
[2022-05-22] MEDS: Mirtazapine 15 MG Tab PO SCH (21:08)
[2022-05-22] MEDS: Dextrose 5% in Water 1,000 ML IV SCH (21:10)
[2022-05-22 21:23] LABS: CARBON DIOXIDE,CO2 28.9 mmol/L (21.0-32.0); POTASSIUM,K 3.7 mmol/L (3.5-5.1)
[2022-05-23 01:38] LABS: CARBON DIOXIDE,CO2 27.2 mmol/L (21.0-32.0); POTASSIUM,K 3.9 mmol/L (3.5-5.1)
[2022-05-23 06:25] LABS: CARBON DIOXIDE,CO2 28.7 mmol/L (21.0-32.0); POTASSIUM,K 3.6 mmol/L (3.5-5.1)
[2022-05-23] MEDS: Dronabinol 2.5 MG Cap PO SCH ×2 (08:09→20:00)
[2022-05-23] MEDS: Ferrous Sulfate 325 MG Tab PO SCH (08:09)
[2022-05-23] MEDS: Sertraline 50 MG Tab PO SCH (08:09)
[2022-05-23 09:45] LABS: CARBON DIOXIDE,CO2 30.1 mmol/L (21.0-32.0); POTASSIUM,K 3.6 mmol/L (3.5-5.1)
[2022-05-23] MEDS: Dextrose 5% in Water 1,000 ML IV SCH (12:54)
[2022-05-23 15:31] LABS: CARBON DIOXIDE,CO2 29.2 mmol/L (21.0-32.0); POTASSIUM,K 3.6 mmol/L (3.5-5.1)
[2022-05-23 17:38] LABS: CARBON DIOXIDE,CO2 29.6 mmol/L (21.0-32.0); POTASSIUM,K 3.9 mmol/L (3.5-5.1)
[2022-05-23] MEDS: Pantoprazole 40 MG in Sodium Chloride 0.9% 10 ML IVPUSH SCH (19:52)
[2022-05-23] MEDS: Mirtazapine 15 MG Tab PO SCH (20:00)
[2022-05-24 06:26] LABS: CARBON DIOXIDE,CO2 28.7 mmol/L (21.0-32.0); POTASSIUM,K 3.1 mmol/L (3.5-5.1)
[2022-05-24] MEDS: Sertraline 50 MG Tab PO SCH (08:16)
[2022-05-24] MEDS: Ferrous Sulfate 325 MG Tab PO SCH (08:16)
[2022-05-24] MEDS: Dronabinol 2.5 MG Cap PO SCH ×2 (08:16→21:43)
[2022-05-24] MEDS: Dextrose 5% in Water 1,000 ML IV SCH ×2 (08:17→22:38)
[2022-05-24] MEDS ORDERED: Potassium Chloride 10% 20 MEQ/15 ML Soln 30 ML UD Cup PO ONE (10:07)
[2022-05-24] MEDS: cefTRIAXone 1 GM in Sodium Chloride 0.9% 50 ML IV SCH (18:35)
[2022-05-24] MEDS: Potassium Chloride 100 ML IV SCH ×2 (18:37→21:44)
[2022-05-24] MEDS: Pantoprazole 40 MG in Sodium Chloride 0.9% 10 ML IVPUSH SCH (21:43)
[2022-05-24] MEDS: Mirtazapine 15 MG Tab PO SCH (21:43)
[2022-05-25 06:43] LABS: CARBON DIOXIDE,CO2 28.6 mmol/L (21.0-32.0); POTASSIUM,K 3.3 mmol/L (3.5-5.1)
[2022-05-25] MEDS: Sertraline 50 MG Tab PO SCH (08:18)
[2022-05-25] MEDS: Dronabinol 2.5 MG Cap PO SCH ×3 (08:18→20:47)
[2022-05-25] MEDS: Ferrous Sulfate 325 MG Tab PO SCH (08:18)
[2022-05-25] MEDS: Potassium Chloride 100 ML IV SCH ×2 (08:18→10:13)
[2022-05-25] MEDS: Dextrose 5% in Water 1,000 ML IV SCH (08:40)
[2022-05-25] MEDS: cefTRIAXone 1 GM in Sodium Chloride 0.9% 50 ML IV SCH (17:06)
[2022-05-25] MEDS: Mirtazapine 15 MG Tab PO SCH (20:47)
[2022-05-25] MEDS: Pantoprazole 40 MG in Sodium Chloride 0.9% 10 ML IVPUSH SCH (20:47)
[2022-05-26] MEDS: Dextrose 5% in Water 1,000 ML IV SCH (02:16)
[2022-05-26 07:06] LABS: CARBON DIOXIDE,CO2 25.1 mmol/L (21.0-32.0); POTASSIUM,K 3.6 mmol/L (3.5-5.1)
[2022-05-26] MEDS: Sertraline 50 MG Tab PO SCH (08:01)
[2022-05-26] MEDS: Dronabinol 2.5 MG Cap PO SCH ×3 (08:01→20:20)
[2022-05-26] MEDS: Ferrous Sulfate 325 MG Tab PO SCH (08:01)
[2022-05-26] MEDS: cefTRIAXone 1 GM in Sodium Chloride 0.9% 50 ML IV SCH (17:36)
[2022-05-26] MEDS: Pantoprazole 40 MG in Sodium Chloride 0.9% 10 ML IVPUSH SCH (20:19)
[2022-05-26] MEDS: Mirtazapine 15 MG Tab PO SCH (20:20)
[2022-05-27] MEDS: Dextrose 5% in Water 1,000 ML IV SCH (08:33)
[2022-05-27 09:06] LABS: CARBON DIOXIDE,CO2 27.6 mmol/L (21.0-32.0); POTASSIUM,K 3.2 mmol/L (3.5-5.1)
[2022-05-27] MEDS: Dronabinol 2.5 MG Cap PO SCH (10:10)
[2022-05-27] MEDS: Sertraline 50 MG Tab PO SCH (10:10)
[2022-05-27] MEDS: Ferrous Sulfate 325 MG Tab PO SCH (10:10)
[2022-05-27] MEDS ORDERED: Potassium Chloride 20 MEQ Tab.ER PO ONE (11:27)
[2022-05-27] MEDS ORDERED: Potassium Chloride 100 ML IV SCH (11:30)
[2022-05-27 12:22] VITALS: BP 125/78; PULSE 91
== END 2022-05-27 12:50 | disposition home health service (06) | DRG 640 ==
LOC: MW.ED 14:47 → MW.MS 17:34
PROVIDERS: ADMIT Student in an Organized Health Care Education/Training Program; ATTEND Student in an Organized Health Care Education/Training Program
PROC: 30233N1 Transfusion of Nonautologous Red Blood Cells into Peripheral Vein, Percutaneous Approach (ICD-10-PCS; principal; 2022-05-22)
DX: E87.0 Hyperosmolality and hypernatremia (principal); E83.42 Hypomagnesemia; R09.02 Hypoxemia; E87.1 Hypo-osmolality and hyponatremia; J96.21 Acute and chronic respiratory failure with hypoxia; C20 Malignant neoplasm of rectum; I10 Essential (primary) hypertension; E86.0 Dehydration; Z66 Do not resuscitate; J44.9 Chronic obstructive pulmonary disease, unspecified; D64.9 Anemia, unspecified; R62.7 Adult failure to thrive; D50.8 Other iron deficiency anemias; Z20.822 Contact with and (suspected) exposure to COVID-19; F17.210 Nicotine dependence, cigarettes, uncomplicated; E83.41 Hypermagnesemia; H40.9 Unspecified glaucoma; E78.00 Pure hypercholesterolemia, unspecified; F32.A Depression, unspecified; Z86.19 Personal history of other infectious and parasitic diseases; Z90.49 Acquired absence of other specified parts of digestive tract; Z79.899 Other long term (current) drug therapy
CPT/HCPCS: 0240U; 36415; 36430; 51702; 71045; 80048; 80053; 81001; 83605; 83735; 84100; 84295; 84484; 85014; 85018; 85025; 85610; 86850; 86900; 86901; 86920; 87040; 87086; 93005; 96360; 97163; 97530; 99285; A9270-GY; C9113; J0696; J3480; J3490; J7030; J7060; P9016; Q0167

== ENCOUNTER 2022-05-28 12:19 | Emergency (ER) | payer MEDICARE, OTHER ==
[2022-05-28] MEDS ORDERED: Sodium Chloride 0.9% 2.5 ML Syringe FLUSH PRN (12:28)
[2022-05-28] MEDS ORDERED: Sodium Chloride 0.9% 1,000 ML IV ONE (12:28)
[2022-05-28] MEDS ORDERED: Sodium Chloride 0.9% 10 ML Syringe FLUSH PRN (12:28)
[2022-05-28 13:20] LABS: CORONAVIRUS COVID-19 NAA NEGATIVE (NEGATIVE); INFLUENZA A NAA NEGATIVE (NEGATIVE); INFLUENZA B NAA NEGATIVE (NEGATIVE); RESPIRATORY SYNCYTIAL VIR NAA NEGATIVE (NEGATIVE)
[2022-05-28 13:42] LABS: BLOOD UREA NITROGEN,BUN 14 mg/dL (7.0-18.0); CARBON DIOXIDE,CO2 26.7 mmol/L (21.0-32.0); CHLORIDE,CL 106 mmol/L (98-107); GLUCOSE RANDOM 106 mg/dL (74-106); POTASSIUM,K 3.8 mmol/L (3.5-5.1); SODIUM,NA 140 mmol/L (136-148)
[2022-05-28 13:45] LABS: ESTIMATED GFR 94 mL/min (>60)
[2022-05-28 17:34] VITALS: BP 178/98; PULSE 76
== END 2022-05-28 17:34 | disposition home or self-care (01) ==
LOC: MW.ED 12:19
DX: R53.1 Weakness (principal); E78.00 Pure hypercholesterolemia, unspecified; I10 Essential (primary) hypertension; J44.9 Chronic obstructive pulmonary disease, unspecified; F17.210 Nicotine dependence, cigarettes, uncomplicated; Z20.822 Contact with and (suspected) exposure to COVID-19
CPT/HCPCS: 0241U; 36415; 71045; 80053; 80307; 83735; 85025; 93005; 96360; 99285; J3490; J7030

== ENCOUNTER 2022-05-30 12:50 | Emergency (ER) | payer MEDICARE, OTHER ==
[2022-05-30 17:13] LABS: CARBON DIOXIDE,CO2 24.8 mmol/L (21.0-32.0)
[2022-05-30 18:10] VITALS: BP 136/93; PULSE 80
== END 2022-05-30 18:14 | disposition home or self-care (01) ==
LOC: MW.ED 12:50
DX: R07.89 Other chest pain (principal); E78.00 Pure hypercholesterolemia, unspecified; I10 Essential (primary) hypertension; J44.9 Chronic obstructive pulmonary disease, unspecified
CPT/HCPCS: 36415; 70450; 70450-26; 71046; 71046-26; 80053; 84484; 85025; 99285